=== PATIENT | female | born 1995 | race Two or more races ===

== ENCOUNTER 2020-04-08 08:39 | Outpatient (REF) | payer MEDICAID, SELFPAY ==
--- NOTE | 2020-04-08 | US_ITS ---
EXAMINATION: OBSTETRICAL ULTRASOUND, FIRST TRIMESTER HISTORY: 25-year-old at the 12.5 weeks of gestation NT screening COMPARISON: 02/22/2020 TECHNIQUE: Real time transabdominal imaging with color and M-mode Doppler. FINDINGS: A single, live IUP CRL of 70.2 mm c/w 13.2wks is noted. Heart Rate: 156 beats per minute. Normal yolk sac seen. NT was 1.7.mm. NB Present The embryo appears sonographically wnl for this GA. Both maternal ovaries are seen and appear normal. GESTATIONAL AGE: 1. Established GA: 12.5 wks 2. GA from [facility]: 13.2 wks ESTIMATED DATE OF DELIVERY: 1. Established MICHEL: 10/16/2020 2. MICHEL from [facility]: 10/12/2020 IMPRESSION: * A single live IUP * Size equals dates * NT of 1.37 mm MFM Consultation: I reviewed the ultrasound findings along with significance of NT measurement. The NT of less than 3mm is generally reassuring. However, the sensitivity for T21 detection is only 60%. I reviewed the availability of serum aneuploidy screening which includes cell-free DNA and placental protein based tests. I discussed the sensitivity, false-positive rate, and other limitations associated with each test. I also reviewed the availability of invasive diagnostic tests that are associated small but definite risk of miscarriage. We also reviewed the differences between screening tests and diagnostic tests. After our discussion, she opted for the First trimester screening that is based on cell-free DNA or non-invasive testing (NIPT). The result will be faxed to your office in approximately 7 days. A follow up at 18 weeks for survey has been scheduled. Thank you very much for this referral. Majority of this visit was spent reviewing her care and counselling her in face to face time: Time spent 20 min.
== END 2020-04-08 08:40 | disposition home or self-care (01) ==
LOC: HO.US 08:39
PROVIDERS: Visit Provider Advanced Practice Midwife
DX: Z34.91 Encounter for supervision of normal pregnancy, unspecified, first trimester (principal)
CPT/HCPCS: 76813

== ENCOUNTER 2020-04-11 11:01 | Outpatient (REF) | payer MEDICAID, SELFPAY ==
[2020-04-12 11:07] LABS: CT PCR NOT DETECTED (Not Detect.); NG PCR NOT DETECTED (Not Detect.)
== END 2020-04-11 11:02 | disposition home or self-care (01) ==
LOC: HO.LNP 11:01
PROVIDERS: Visit Provider Obstetrics & Gynecology
DX: Z34.81 Encounter for supervision of other normal pregnancy, first trimester (principal); Z3A.13 13 weeks gestation of pregnancy
CPT/HCPCS: 36415; 87491; 87591; 88142

== ENCOUNTER → 2020-05-09 15:48 | Outpatient (BNVA) | payer MEDICAID, SELFPAY | PROVIDERS: Visit Provider Advanced Practice Midwife | DX: Z76.89 Persons encountering health services in other specified circumstances (principal) ==

== ENCOUNTER 2020-05-20 12:08 | Outpatient (REF) | payer MEDICAID, SELFPAY ==
--- NOTE | 2020-05-20 12:10 | US_ITS ---
EXAMINATION: US OBSTETRICAL CLINICAL INFORMATION: 25-year-old at 18.5 weeks of gestation Suspected anomaly COMPARISON: 04/08/2020 TECHNIQUE: Real-time transabdominal ultrasound was performed using C1-5 megahertz transducer. FINDINGS: A single, active, fetus is seen in vertex presentation. The placenta is posterior without previa, and the amniotic fluid volume is wnl. MEASUREMENTS: 1. Biparietal Diameter: 4.4 cm; 19.2 wks 2. Occipital Frontal Diameter: 5.5 cm 3. Head Circumference: 16.4 cm; 19.1 wks 4. Abdominal Circumference: 14.0 cm; 19.3 wks 5. Femur Length: 2.8 cm; 18.5 wks 6. Humerus Length: 2.9 cm; 19.4 wks 7. Tibia Length: 2.5 cm; 18.6 wks 8. Ulna Length: 2.8 cm; 20.1 wks 9. Lateral ventricle: 0.5 cm 10. Cerebellum: 1.9 cm; 19.2 wks 11. Cisterna Magna: 0.34 cm 12. Nuchal Fold: 3.2 mm 13. Heart Rate: 143 beats per minute Rt ovary: Unable to visualize Lt ovary: Unable to visualize Cervical length 3.7 cm on T/A. GESTATIONAL AGE: 1. Established GA: 18.5 wks 2. GA from [facility]: 19.1 wks ESTIMATED DATE OF DELIVERY: 1. Established MICHEL: 10/16/2020 2. MICHEL from [facility]: 10/13/2020 ANATOMY: The visualized anatomy includes but not limited to: 1. Cranium: Normal 2. Intracranial anatomy: cavum septum pellucidi, lateral ventricles, choroid plexus, cerebellum, posterior fossa, third and fourth ventricles. 3. face: orbits, lip/palate, profile, nasal bone 4. Heart: four-chamber view of the heart, ventricular septum, foramen ovale, pulmonary vein, left and right outflow tracts, three-vessel view, 3 vessel trachea view, aortic and ductal arches, situs.. 5. Diaphragm: Normal 6. Abdominal wall: Normal 7. Cord Insertion: Normal 8. Spine: Cervical, thoracic, lumbar, sacral. 9. Stomach: Normal size and shape 10. Right Kidney: Normal 11. Left Kidney: Normal 12. 3 vessel cord: Normal 13. Upper extremity: Open hands, fifth digit. 14. Lower extremity: Tibia, fibula, bilateral feet. 15. Bladder: Normal 16. Genitalia: Female, patient aware US/US OB /maternal detail IMPRESSION: 1. Single, living, intrauterine with appropriate biometry. 2. Normal survey DISCUSSION: I reviewed today's ultrasound findings. We discussed the limitations of ultrasound in diagnosing aneuploidy and other congenital abnormalities. I reviewed the differences between screening test and diagnostic test. Amniocentesis was discussed and declined. She was informed that the baseline incidence of congenital abnormalities is approximately 3-5%. Not all these conditions are diagnosable in utero. RECOMMENDATIONS: 1. No additional ultrasound has been scheduled. Thank you for allowing me to participate in her care. Visiting time 25 minutes. Majority of this visit was spent reviewing and discussing her care.
== END 2020-05-20 12:09 | disposition home or self-care (01) ==
LOC: HO.US 12:08
PROVIDERS: PCP Family Medicine; Visit Provider Advanced Practice Midwife
DX: Z34.80 Encounter for supervision of other normal pregnancy, unspecified trimester (principal); Z36.3 Encounter for antenatal screening for malformations; Z3A.18 18 weeks gestation of pregnancy
CPT/HCPCS: 76811

== ENCOUNTER → 2020-06-06 14:47 | Outpatient (BNVA) | payer MEDICAID, SELFPAY | PROVIDERS: PCP Family Medicine; Visit Provider Advanced Practice Midwife | DX: Z76.89 Persons encountering health services in other specified circumstances (principal) ==

== ENCOUNTER 2020-06-24 15:16 | Outpatient (REF) | payer MEDICAID, SELFPAY ==
[2020-06-26 11:58] LABS: BV Int Neg Control Negative (Negative); BV Int Pos Control Positive (Positive)
== END 2020-06-24 15:17 | disposition home or self-care (01) ==
LOC: HO.LAB 15:16
PROVIDERS: PCP Family Medicine; Visit Provider Obstetrics & Gynecology
DX: O26.892 Other specified pregnancy related conditions, second trimester (principal); N89.8 Other specified noninflammatory disorders of vagina; O98.312 Other infections with a predominantly sexual mode of transmission complicating pregnancy, second trimester; Z3A.23 23 weeks gestation of pregnancy
CPT/HCPCS: 81003; 87480; 87491; 87510; 87591; 87660

== ENCOUNTER → 2020-07-04 15:14 | Outpatient (BNVA) | payer MEDICAID, SELFPAY | PROVIDERS: Visit Provider Obstetrics & Gynecology | DX: Z34.83 Encounter for supervision of other normal pregnancy, third trimester (principal) | CPT/HCPCS: 81003; 99212 ==

== ENCOUNTER 2020-07-25 14:11 | Outpatient (REF) | payer MEDICAID, SELFPAY ==
[2020-07-25 15:41] LABS: MANUAL DIFF FLAG NO
[2020-07-25 15:47] LABS: Basophils Percent Auto 0.3 % (0-2); Eosinophils Absolute Auto 0.3 X10*3/uL (0.0-0.4); Eosinophils Percent Auto 2.3 % (0-4); Hematocrit 29.2 % (37-47); Hemoglobin 9.2 g/dl (12.0-16.0); Imm Gran Abs Auto 0.15 X10*3/uL (0.00-0.03); Imm Gran Pct Auto 1.4 % (0.0-0.4); Lymphocytes Absolute Auto 1.9 X10*3/uL (1.2-4.9); Lymphocytes Percent Auto 17.2 % (20-40); Mean Corpuscular HGB Conc 31.5 g/dl (31.0-35.0); Mean Corpuscular Hemoglobin 24.1 pg (27.0-33.0); Mean Corpuscular Volume 76.4 fL (80-98); Mean Platelet Volume 10.1 fL (9.4-12.3); Monocytes Absolute Auto 0.9 X10*3/uL (0.1-1.2); Monocytes Percent Auto 8.5 % (2-11); Neutrophils Absolute Auto 7.8 X10*3/uL (2.0-8.3); Neutrophils Percent Auto 70.3 % (45-73); Platelet Count 413 X10*3/uL (160-400); Red Blood Count 3.82 X10*6/uL (4.20-5.50); Red Cell Distribution Width 14.1 % (11.0-16.0); White Blood Count 11.1 X10*3/uL (4.8-10.8)
[2020-07-25 16:26] LABS: Syphilis Screen Nonreactive (Nonreactive)
[2020-07-27 09:16] LABS: HIV AB/AG Nonreactive (Nonreactive); HIV Num 1 0.07 S/CO (0.00-0.99); Hepatitis B Surface Antigen Negative (Negative)
[2020-07-28 00:27] LABS: C. trachomatis RNA TMA NOT DETECTED (NOT DETECTED); N. gonorrhoeae RNA TMA NOT DETECTED (NOT DETECTED)
== END 2020-07-25 14:12 | disposition home or self-care (01) ==
LOC: HO.LAB 14:11
PROVIDERS: PCP Family Medicine; Visit Provider Obstetrics & Gynecology
DX: Z34.83 Encounter for supervision of other normal pregnancy, third trimester (principal); R30.0 Dysuria
CPT/HCPCS: 85025; 86780; 86850; 86900; 86901; 87086; 87147; 87340; 87389; 87491; 87591; 90471; 90715; 99212

== ENCOUNTER → 2020-07-29 14:42 | Outpatient (BNVA) | payer MEDICAID, SELFPAY | PROVIDERS: Visit Provider Advanced Practice Midwife | DX: R42 Dizziness and giddiness (principal) | CPT/HCPCS: 81003; 99212 ==

== ENCOUNTER → 2020-08-24 13:35 | Outpatient (BNVA) | payer MEDICAID, SELFPAY | PROVIDERS: Visit Provider Advanced Practice Midwife | DX: Z34.83 Encounter for supervision of other normal pregnancy, third trimester (principal) | CPT/HCPCS: 81003; 99212 ==

== ENCOUNTER → 2020-09-07 14:10 | Outpatient (BNVA) | payer MEDICAID, SELFPAY | PROVIDERS: Visit Provider Obstetrics & Gynecology | DX: Z34.83 Encounter for supervision of other normal pregnancy, third trimester (principal) | CPT/HCPCS: 99212 ==

== ENCOUNTER 2020-09-18 18:31 | Emergency (ER) | payer MEDICAID, SELFPAY ==
[2020-09-18 18:57] VITALS: BP 130/55; PULSE 103; RESP 18; TEMP 36.9; O2SAT 100; BMI 29.6
[2020-09-18 21:11] VITALS: BP 113/64; PULSE 92; RESP 15; O2SAT 98
[2020-09-18] MEDS: 0.9 % Sodium Chloride 1,000 ML 999 ML IV ×2 (21:27→22:53)
[2020-09-18 21:32] LABS: MANUAL DIFF FLAG NO
[2020-09-18 21:35] LABS: Basophils Percent Auto 0.2 % (0-2); Eosinophils Absolute Auto 0.2 X10*3/uL (0.0-0.4); Hematocrit 34.6 % (37-47); Hemoglobin 10.8 g/dl (12.0-16.0); Imm Gran Abs Auto 0.19 X10*3/uL (0.00-0.03); Imm Gran Pct Auto 1.7 % (0.0-0.4); Lymphocytes Absolute Auto 1.5 X10*3/uL (1.2-4.9); Lymphocytes Percent Auto 12.8 % (20-40); Mean Corpuscular HGB Conc 31.2 g/dl (31.0-35.0); Mean Corpuscular Hemoglobin 24.2 pg (27.0-33.0); Mean Corpuscular Volume 77.4 fL (80-98); Mean Platelet Volume 10.5 fL (9.4-12.3); Monocytes Absolute Auto 0.8 X10*3/uL (0.1-1.2); Monocytes Percent Auto 7.3 % (2-11); Neutrophils Absolute Auto 8.6 X10*3/uL (2.0-8.3); Platelet Count 332 X10*3/uL (160-400); Red Blood Count 4.47 X10*6/uL (4.20-5.50); Red Cell Distribution Width 19.2 % (11.0-16.0); White Blood Count 11.3 X10*3/uL (4.8-10.8)
--- NOTE | 2020-09-18 21:39 | ED.PREGNANCY ---
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 She now presents with 2 days of constant nausea and vomiting without fevers, chills, diarrhea, urinary pain/burning/frequency, vaginal discharge/bleeding, cramping, and states she is feeling the baby moving. Patient states that she does have a sick contact by her young son and denies any current complications of her . Patient has declined both influenza vaccine as well as Tdap. She is currently on Zoloft and states she has been having acid reflux throughout her . Related Data Previous Rx's Medication Instructions Recorded vits 75-iron 28 mg-folic 1 pkg PO DAILY #90 ea 04/11/20 acid 800 mcg-omega-3 oral combo pack loratadine 10 mg tablet 10 mg PO DAILY PRN #30 tab 06/06/20 metronidazole 500 mg tablet 500 mg PO BID 7 Days #14 tab 06/28/20 miconazole nitrate 2 % vaginal 1 appful VAGINAL BEDTIME 7 Days 06/28/20 cream #45 g sertraline 50 mg tablet 50 mg PO DAILY #20 tab 07/25/20 docusate sodium 100 mg capsule 100 mg PO BID PRN 30 Days #60 cap 07/26/20 ferrous sulfate 325 mg (65 mg 325 mg PO BID 30 Days #60 tab 07/26/20 iron) tablet,delayed release famotidine 20 mg tablet 20 mg PO BID #60 tab 09/07/20 vits no.130-ferrous fum 1 tab PO DAILY #30 tab 09/07/20 27 mg iron-folic acid 800 mcg tablet Allergies Allergy/AdvReac Type Severity Reaction Status Date / Time No Known Allergies Allergy Verified 09/07/20 14:23 Review of Systems Review of Systems: Pertinent positives and negatives as stated in HPI 10 point review of systems is otherwise negative. PMFSH Past Medical History Source: nursing notes reviewed Medical History Depression Patient denies medical problems Positive depression screening Surgical History No pertinent past surgical history Family History Family History Father History of asthma Hx of diabetes mellitus Hx of cancer of lung History of mental problems Family hx of hypertension Hx of cardiovascular disorder Mother Hx of thyroid disease Brother History of ADHD Paternal Grandmother Family hx of hypertension Social History Social History Alcohol intake: never Smoking Status: Never smoker Use of substances other than those prescribed or required for medical reasons: No Advance Directives: No Advance Directives Information Provided: No Sexual orientation: Straight/Heterosexual Gender identity: female Physical Exam Vital Signs: Vital Signs: Last Vital Signs Temp 98.5 F 09/18/20 18:57 Pulse 98 09/19/20 00:00 Resp 15 09/19/20 00:00 BP 118/71 09/19/20 00:00 Pulse Ox 98 09/19/20 00:00 Body Mass Index 29.6 VITAL SIGNS: Reviewed. GENERAL: Well developed, well nourished, in no acute distress. HEAD: Normocephalic/atraumatic, EYES: PERRLA, EOMI OROPHARYNX: no oral lesions noted, posterior pharynx clear, tacky mucosa NECK: Supple, no adenopathy LUNGS: Normal breath sounds. No adventitious sounds or accessory muscle use. SpO2<100> CARDIOVASCULAR: Regular rate and rhythm without noted murmurs ABDOMEN: Soft, non-tender, non-distended with bowel sounds. EXTREMITIES: No edema. SKIN: Inspection of the skin reveals no rashes NEUROLOGIC: Alert and oriented x 4. Course Course Course Narrative: This is a 25-year-old female with history and clinical presentation with development of nausea and vomiting without diarrhea of unclear etiology but states she has been having acid reflux problems throughout her . Will rule out infectious etiologies but no clinical evidence to suggest HELLP syndrome, diabetes, or UTI. Review of all investigations negative for any acute findings other than presence of blood within the urine and suspect that the leukocyte esterase that is observed a secondary to the presence of blood as there have been no fevers. Suspect that this may be you are ureterolithiasis the case was discussed with the on-call engineering inspection assistant who recommends transfer to [facility] for NST. COVID negative. Reevaluation(s) Reevaluation #1: I discussed the case with Dr Corbin who recommends transfer to [facility] for NST given that patient is 35 weeks. Time: 23:30 Reevaluation #2: I discussed case with Dr. Rivera, from [facility], who accepts transfer for NST evaluation. Time: 23:45 MDM - OB/Uterine Contractions Lab Data Result diagrams: 09/18/20 21:26 09/18/20 21:26 Labs: Lab Results 09/18/20 09/18/20 09/18/20 Range/Units 21:26 21:26 22:49 WBC 11.3 H (4.8-10.8) X10*3/uL RBC 4.47 (4.20-5.50) X10*6/uL Hgb 10.8 L (12.0-16.0) g/dl Hct 34.6 L (37-47) % MCV 77.4 L (80-98) fL MCH 24.2 L (27.0-33.0) pg MCHC 31.2 (31.0-35.0) g/dl RDW 19.2 H (11.0-16.0) % Plt Count 332 (160-400) X10*3/uL MPV 10.5 (9.4-12.3) fL Immature Gran % (Auto) 1.7 H (0.0-0.4) % Neut % (Auto) 76.0 H (45-73) % Lymph % (Auto) 12.8 L (20-40) % Bond % (Auto) 7.3 (2-11) % Eos % (Auto) 2.0 (0-4) % Baso % (Auto) 0.2 (0-2) % Lymph # (Auto) 1.5 (1.2-4.9) X10*3/uL Bond # (Auto) 0.8 (0.1-1.2) X10*3/uL Eos # (Auto) 0.2 (0.0-0.4) X10*3/uL Baso # (Auto) 0.0 (0.0-0.2) X10*3/uL Abs Immat Gran (auto) 0.19 H (0.00-0.03) X10*3/uL Absolute Neuts (auto) 8.6 H (2.0-8.3) X10*3/uL Absolute Nucleated RBC 0.000 (0.0-0.012) X10*3/uL Nucleated RBC % (auto) 0.0 (0.0-0.2) /100WBC Sodium 138 (135-145) mmol/L Potassium 3.6 (3.3-5.1) mmol/L Chloride 106 (96-108) mmol/L Carbon Dioxide 23 (22-29) mmol/L Anion Gap 13 (12-20) BUN 6 L (9-16) mg/dL Creatinine 0.61 (0.5-1.4) mg/dL Estim Creat Clear Calc 133.5 Estimated GFR > 60 Random Glucose 113 (60-115) mg/dL Calcium 8.7 (8.4-10.2) mg/dL Total Bilirubin 0.5 (0.0-1.0) mg/dL AST 14 (5-31) U/L ALT 8 (0-31) U/L Alkaline Phosphatase 149 H (39-117) U/L Total Protein 6.6 (6.5-8.0) g/dL Albumin 3.6 (3.5-5.0) g/dL Urine Color YELLOW Urine Appearance HAZY Urine pH 6.5 (5.0-8.0) Ur Specific [place] 1.020 (1.005-1.025) Urine Protein TRACE (NEG-TRACE) MG/DL Urine Glucose (UA) NEG (NEG) MG/DL Urine Ketones NEG (NEG) MG/DL Urine Blood 3+ H (NEG) Urine Nitrite NEG (NEG) Ur Leukocyte Esterase TRACE H (NEG) Urine RBC 15-29 H (0) /HPF Urine WBC 0-2 (0-4) /HPF Ur Squamous Epith Cells 1+ /LPF Amorphous Sediment 1+ /LPF Urine Bacteria 1+ /LPF COVID-19 (PILY) (Negative) COVID-19 Clin Com 09/18/20 Range/Units 23:46 WBC (4.8-10.8) X10*3/uL RBC (4.20-5.50) X10*6/uL Hgb (12.0-16.0) g/dl Hct (37-47) % MCV (80-98) fL MCH (27.0-33.0) pg MCHC (31.0-35.0) g/dl RDW (11.0-16.0) % Plt Count (160-400) X10*3/uL MPV (9.4-12.3) fL Immature Gran % (Auto) (0.0-0.4) % Neut % (Auto) (45-73) % Lymph % (Auto) (20-40) % Bond % (Auto) (2-11) % Eos % (Auto) (0-4) % Baso % (Auto) (0-2) % Lymph # (Auto) (1.2-4.9) X10*3/uL Bond # (Auto) (0.1-1.2) X10*3/uL Eos # (Auto) (0.0-0.4) X10*3/uL Baso # (Auto) (0.0-0.2) X10*3/uL Abs Immat Gran (auto) (0.00-0.03) X10*3/uL Absolute Neuts (auto) (2.0-8.3) X10*3/uL Absolute Nucleated RBC (0.0-0.012) X10*3/uL Nucleated RBC % (auto) (0.0-0.2) /100WBC Sodium (135-145) mmol/L Potassium (3.3-5.1) mmol/L Chloride (96-108) mmol/L Carbon Dioxide (22-29) mmol/L Anion Gap (12-20) BUN (9-16) mg/dL Creatinine (0.5-1.4) mg/dL Estim Creat Clear Calc Estimated GFR Random Glucose (60-115) mg/dL Calcium (8.4-10.2) mg/dL Total Bilirubin (0.0-1.0) mg/dL AST (5-31) U/L ALT (0-31) U/L Alkaline Phosphatase (39-117) U/L Total Protein (6.5-8.0) g/dL Albumin (3.5-5.0) g/dL Urine Color Urine Appearance Urine pH (5.0-8.0) Ur Specific [place] (1.005-1.025) Urine Protein (NEG-TRACE) MG/DL Urine Glucose (UA) (NEG) MG/DL Urine Ketones (NEG) MG/DL Urine Blood (NEG) Urine Nitrite (NEG) Ur Leukocyte Esterase (NEG) Urine RBC (0) /HPF Urine WBC (0-4) /HPF Ur Squamous Epith Cells /LPF Amorphous Sediment /LPF Urine Bacteria /LPF COVID-19 (PILY) Negative (Negative) COVID-19 Clin Com See Note Discharge Plan Discharge Clinical Impression: 35 weeks gestation of Nausea & vomiting Qualifiers: Vomiting type: unspecified Vomiting Intractability: non-intractable Qualified Code(s): R11.2 - Nausea with vomiting, unspecified Hematuria Qualifiers: Hematuria type: unspecified type Qualified Code(s): R31.9 - Hematuria, unspecified Patient Disposition: [facility] Transfer Details: Needs NST Prescriptions: No Action metronidazole [Flagyl] 500 mg tablet 500 mg PO BID 7 Days Qty: 14 RF: 0 miconazole nitrate [Monistat 7] 2 % cream 1 appful vaginal BEDTIME 7 Days Qty: 45 RF: 0 ferrous sulfate 325 mg (65 mg iron) tablet,delayed release (DR/EC) 325 mg PO BID 30 Days Qty: 60 RF: 3 docusate sodium [Colace] 100 mg capsule 100 mg PO BID PRN (Reason: constipation) 30 Days Qty: 60 RF: 3 One A Day Women's DHA 28 mg iron- 800 mcg combo pack 1 pkg PO DAILY Qty: 90 RF: 3 loratadine [Allergy Relief (loratadine)] 10 mg tablet 10 mg PO DAILY PRN (Reason: allergy symptoms) Qty: 30 RF: 1 famotidine [Pepcid] 20 mg tablet 20 mg PO BID Qty: 60 RF: 3 Vitamin 27 mg iron- 800 mcg tablet 1 tab PO DAILY Qty: 30 RF: 5 sertraline 50 mg tablet 50 mg PO DAILY Qty: 20 RF: 0
[2020-09-18 21:59] LABS: Alanine Aminotransferase 8 U/L (0-31); Albumin Level 3.6 g/dL (3.5-5.0); Alkaline Phosphatase 149 U/L (39-117); Anion Gap 13 (12-20); Aspartate Amino Transferase 14 U/L (5-31); Bilirubin Total 0.5 mg/dL (0.0-1.0); Blood Urea Nitrogen 6 mg/dL (9-16); Calcium 8.7 mg/dL (8.4-10.2); Carbon Dioxide 23 mmol/L (22-29); Chloride 106 mmol/L (96-108); Creatinine Clr Calc Pharmacy 133.5; Estimated Glomerular Filt Rate > 60; Glucose Random 113 mg/dL (60-115); Potassium 3.6 mmol/L (3.3-5.1); Sodium 138 mmol/L (135-145); Total Protein 6.6 g/dL (6.5-8.0)
[2020-09-18 23:03] LABS: Glucose Urine UA NEG (NEG); Leukocyte Esterase Urine TRACE (NEG); Nitrite Urine NEG (NEG); PH 6.5 (5.0-8.0); UACC Culture Trigger YES; Urine Blood 3+ (NEG); Urine Ketones NEG (NEG); Urine Protein TRACE MG/DL (NEG-TRACE)
[2020-09-18 23:05] LABS: Appearance Urine HAZY; Color Urine YELLOW
[2020-09-18 23:12] LABS: Amorphous Sediment Urine 1+ /LPF; Bacteria Urine 1+ /LPF; Squamous Epithelial Cell Urine 1+ /LPF; WBC Urine 0-2 /HPF (0-4)
--- NOTE | 2020-09-18 23:34 | PC.NURSE ---
@[id number] DR GARZA REQUESTS CALL OUT TO [facility] [place] LINE FOR THIS PT PT INFO AND REASON FOR TRANSFER TAKEN ALONG WITH CALL BACK NUMBER AND TOLD THEY WILL CALL US BACK WITH A DR ON THE LINE SOON TO SPEAK WITH DR GARZA..
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
--- NOTE | 2020-09-18 23:42 | PC.NURSE ---
@23:41 IRMA FROM [facility] TX LINE CALLS FOR DR GREG GARZA TAKES OVER CALL RIGHT AWAY
[2020-09-19] VITALS: BP 118/71; PULSE 98; RESP 15; O2SAT 98
[2020-09-19 00:35] LABS: COVID-19 Test Negative (Negative)
--- NOTE | 2020-09-19 01:00 | PC.NURSE ---
@0059 [facility] CALLED FOR TRANPORT TO [facility] ROOM 19 BLS TRANSPORT. ANTONY ANSWERS, TAKES PT INFO AND DESTINATION INFO, THEN GIVES 1/2 HOUR ARRIVAL TIME
--- NOTE | 2020-09-19 01:24 | PC.NURSE ---
@0118 [facility] ARRIVES FOR TRANSFER OF THIS PT GETS EPORT FROM JASMIN DUMONT
== END 2020-09-19 01:39 | disposition short-term general hospital (02) ==
PROVIDERS: Emergency Provider Student in an Organized Health Care Education/Training Program
DX: O26.93 Pregnancy related conditions, unspecified, third trimester (principal); Z3A.35 35 weeks gestation of pregnancy; Z20.822 Contact with and (suspected) exposure to COVID-19; Z79.899 Other long term (current) drug therapy
CPT/HCPCS: 36415; 80053; 81001; 81003; 85025; 87086; 87635; 96360; 96361; 99283; 99285

== ENCOUNTER → 2020-09-21 12:30 | Outpatient (BNVA) | payer MEDICAID, SELFPAY | PROVIDERS: PCP Family Medicine; Visit Provider Advanced Practice Midwife | DX: O36.5990 Maternal care for other known or suspected poor fetal growth, unspecified trimester, not applicable or unspecified (principal); Z3A.36 36 weeks gestation of pregnancy | CPT/HCPCS: 81003; 99212 ==

== ENCOUNTER 2020-09-23 14:35 | Outpatient (REF) | payer MEDICAID, SELFPAY ==
--- NOTE | ~2020-09-23 | US_ITS ---
EXAMINATION: OBSTETRICAL ULTRASOUND, Follow up HISTORY: 35-year-old at 36.5 weeks of gestation Size date discrepancy COMPARISON: 05/20/2020 TECHNIQUE: Real time transabdominal imaging with color and M-mode Doppler. PRESENTATION: Vertex PLACENTA LOCATION: Posterior, without previa AMNIOTIC FLUID: ANDRAE 10.1 cm MEASUREMENTS: 1. Biparietal Diameter: 9.3 cm; 37.5 wks 2. Head Circumference: 32.2 cm; 36.3 wks 3. Abdominal Circumference: 33.42 cm; 37.3 wks 4. Femur Length: 7.14 cm; 36.5 wks 5. Heart Rate: 133 beats per minute WEIGHT: EFW: 3180 grams (7 lbs 0 oz) -- 71 %. BIOPHYSICAL PROFILE: Motion: 2 Tone: 2 Breathin Amniotic Fluid: 2 Total score: 8/8 GESTATIONAL AGE: 1. Established GA: 36.5 wks 2. GA from A: 37.1 wks ESTIMATED DATE OF DELIVERY: 1. Established MICHEL: 10/16/2020 2. MICHEL from [facility]: 10/13/2020 US/US OB follow up IMPRESSION: 1. A single active fetus is in vertex presentation 2. Size equals dates 3. Reassuring biophysical profile with normal amniotic fluid We reviewed the limitations of ultrasound and estimating weights. Thank you very much for this referral. This note was generated with a voice recognition program. Please excuse any errors which may have been overlooked during my review of this note. Sometimes these errors may affect the content or meaning of a given sentence.
== END 2020-09-23 14:36 | disposition home or self-care (01) ==
LOC: HO.US 14:35
PROVIDERS: Visit Provider Advanced Practice Midwife
DX: O26.843 Uterine size-date discrepancy, third trimester (principal); O36.5930 Maternal care for other known or suspected poor fetal growth, third trimester, not applicable or unspecified; Z3A.36 36 weeks gestation of pregnancy
CPT/HCPCS: 76816

== ENCOUNTER → 2020-10-04 14:29 | Outpatient (BNVA) | payer MEDICAID, SELFPAY | PROVIDERS: PCP Family Medicine; Visit Provider Obstetrics & Gynecology | DX: Z34.80 Encounter for supervision of other normal pregnancy, unspecified trimester (principal); Z3A.38 38 weeks gestation of pregnancy | CPT/HCPCS: 81003; 99212 ==

== ENCOUNTER 2022-09-28 10:52 | Emergency (ER) | payer MEDICAID, SELFPAY ==
[2022-09-28 10:55] VITALS: BP 141/85; PULSE 110; RESP 22; TEMP 36.6; O2SAT 96; BMI 24.7
[2022-09-28] MEDS: Albuterol Sulfate (0.083%) 2.5 MG/3 ML VIAL.NEB 10 MG INHALE ×2 (11:52→13:00)
[2022-09-28 11:53] VITALS: PULSE 110; RESP 20; O2SAT 96
[2022-09-28 13:01] LABS: COVID-19 Test Negative (Negative); IDNOW Serial# 55D5AD1C
--- NOTE | 2022-09-28 13:14 | ED.SOB ---
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 This has not been associated with any prior fever, chills, sore throat, new cough, ear pain, GI or symptoms. Related Data Previous Rx's Medication Instructions Recorded vits 75-iron 28 mg-folic 1 pkg PO DAILY #90 ea 04/11/20 acid 800 mcg-omega-3 oral combo pack (One A Day Women's DHA) loratadine 10 mg tablet (Allergy 10 mg PO DAILY PRN allergy 06/06/20 Relief (loratadine)) symptoms #30 tabs metronidazole 500 mg tablet 500 mg PO BID 7 days #14 tabs 06/28/20 (Flagyl) miconazole nitrate 2 % vaginal 1 appful vaginal BEDTIME 7 days 06/28/20 cream (Monistat 7) #45 grams sertraline 50 mg tablet 50 mg PO DAILY #20 tabs 07/25/20 docusate sodium 100 mg capsule 100 mg PO BID PRN constipation 30 07/26/20 (Colace) days #60 caps ferrous sulfate 325 mg (65 mg 325 mg PO BID 30 days #60 tabs 07/26/20 iron) tablet,delayed release famotidine 20 mg tablet (Pepcid) 20 mg PO BID #60 tabs 09/07/20 vits no.130-ferrous fum 1 tab PO DAILY #30 tabs 09/07/20 27 mg iron-folic acid 800 mcg tablet ( Vitamin) prednisone 50 mg tablet 50 mg PO DAILY 4 days #4 tabs 09/28/22 Allergies Allergy/AdvReac Type Severity Reaction Status Date / Time No Known Allergies Allergy Verified 10/04/20 14:47 Review of Systems Review of Systems: Pertinent positives and negatives as stated in HPI PMF Past Medical History Source: nursing notes reviewed Medical History Depression Patient denies medical problems Positive depression screening Surgical History No pertinent past surgical history Family History Family History Father History of asthma Hx of diabetes mellitus Hx of cancer of lung History of mental problems Family hx of hypertension Hx of cardiovascular disorder Mother Hx of thyroid disease Brother History of ADHD Paternal Grandmother Family hx of hypertension Social History Social History Alcohol intake: never Advance Directives: No Advance Directives Information Provided: Yes Sexual orientation: Straight/Heterosexual Gender identity: Female Physical Exam Vital Signs: Vital Signs: Last Vital Signs Temp 97.8 F 09/28/22 10:55 Pulse 118 H 09/28/22 13:37 Resp 20 09/28/22 13:37 BP 139/76 09/28/22 13:37 Pulse Ox 99 09/28/22 13:37 O2 Del Method Room Air 09/28/22 13:37 BMI result Body Mass Index 24.7 VITAL SIGNS: Reviewed. GENERAL: Well developed, well nourished, in no acute distress. HEAD: Normocephalic/atraumatic EYES: PERRLA, EOMI EARS: Ext canals without abnormality, TMs non-bulging and non-erythematous NOSE: Nares patent bilateral OROPHARYNX: no oral lesions noted, posterior pharynx clear and non-erythematous without noted tonsillar enlargement/erythema/exudates NECK: Supple, no adenopathy LUNGS: Decreased breath sounds bilaterally with expiratory wheeze, tachypnea is present SpO2<96> CARDIOVASCULAR: Regular rate and rhythm without noted murmurs ABDOMEN: Soft, non-tender, non-distended with bowel sounds. MUSCULOSKELETAL: No tenderness, deformities, or effusions noted on gross inspection. EXTREMITIES: No cyanosis, clubbing or edema. SKIN: Inspection of the skin reveals no rashes NEUROLOGIC: Alert and oriented x 4. Strength and sensation to light touch were grossly intact x 4. Medications Administered Discontinued Medications Generic Name Dose Route Start Last Admin Trade Name Freq PRN Reason Stop Dose Admin Albuterol Sulfate 10 mg 09/28/22 11:30 09/28/22 11:52 Albuterol Sulfate (0.083%) 2.5 Mg/3 Ml Vial.Neb INHALE 09/28/22 11:31 10 mg ONCE ONE Administration Albuterol Sulfate 10 mg 09/28/22 12:36 09/28/22 13:00 Albuterol Sulfate (0.083%) 2.5 Mg/3 Ml Vial.Neb INHALE 09/28/22 12:37 10 mg ONCE ONE Administration Prednisone 50 mg 09/28/22 12:36 09/28/22 13:38 Prednisone 10 Mg Tablet PO 09/28/22 12:37 50 mg ONCE ONE Administration Medical Decision Making Medical Decision Making MDM Narrative: 27-year-old female with history and clinical presentation consistent with acute asthma exacerbation, patient will receive nebulized treatments, steroids, and COVID-19 testing. Review of all investigations are negative for acute findings my interpretation is this is a straightforward mild acute asthma exacerbation and on re-evaluation patient is significantly improved and will go home on a short course of steroids. Differential Diagnosis Please see the discussion above Lab Data Please see the discussion above Labs: Lab Results 09/28/22 Range/Units 12:17 COVID-19 (PILY) Negative (Negative) COVID-19 Clin Com See Note External Record Review External record reviewed: Outpatient record and Prior outpatient labs Discharge Plan Discharge Clinical Impression: Asthma exacerbation Patient Disposition: Home, Self-Care Instructions: Asthma (ED) Additional Instructions: Reanude todos los medicamentos caseros. Complete el curso corto de esteroides. Seguimiento con stallings proveedor de atenci?n primaria el por la ma?koki Regrese a la eladia de emergencias si los s?ntomas empeoran. Resume all home medications. Please complete the short course of steroids. Follow-up with your primary care provider on Saturday morning Return to the ER for any worsening symptoms. Prescriptions: New prednisone 50 mg tablet 50 mg PO DAILY 4 Days Qty: 4 0RF No Action metronidazole [Flagyl] 500 mg tablet 500 mg PO BID 7 Days Qty: 14 0RF miconazole nitrate [Monistat 7] 2 % cream 1 appful vaginal BEDTIME 7 Days Qty: 45 0RF ferrous sulfate 325 mg (65 mg iron) tablet,delayed release (DR/EC) 325 mg PO BID 30 Days Qty: 60 3RF docusate sodium [Colace] 100 mg capsule 100 mg PO BID PRN (Reason: constipation) 30 Days Qty: 60 3RF One A Day Women's DHA 28 mg iron- 800 mcg combo pack 1 pkg PO DAILY Qty: 90 3RF loratadine [Allergy Relief (loratadine)] 10 mg tablet 10 mg PO DAILY PRN (Reason: allergy symptoms) Qty: 30 1RF famotidine [Pepcid] 20 mg tablet 20 mg PO BID Qty: 60 3RF Vitamin 27 mg iron- 800 mcg tablet 1 tab PO DAILY Qty: 30 5RF sertraline 50 mg tablet 50 mg PO DAILY Qty: 20 0RF Referrals: Evon Hayes DO [Primary Care Provider] - Print Language: Nepali
[2022-09-28 13:37] VITALS: BP 139/76; PULSE 118; RESP 20; O2SAT 99
[2022-09-28] MEDS: predniSONE 10 MG TABLET 50 MG PO (13:38)
== END 2022-09-28 14:49 | disposition home or self-care (01) ==
PROVIDERS: Emergency Provider Student in an Organized Health Care Education/Training Program; PCP Family Medicine
DX: J45.901 Unspecified asthma with (acute) exacerbation (principal); R06.00 Dyspnea, unspecified; R06.02 Shortness of breath; Z20.822 Contact with and (suspected) exposure to COVID-19; Z20.828 Contact with and (suspected) exposure to other viral communicable diseases; Z79.899 Other long term (current) drug therapy
CPT/HCPCS: 87635; 94640; 99284

== ENCOUNTER 2023-05-08 18:24 | Emergency (ER) | payer MEDICAID, SELFPAY ==
--- NOTE | ~2023-05-08 | US_ITS ---
EXAMINATION: US PELVIS CLINICAL INFORMATION: Pain and bleeding COMPARISON: OB ultrasound 09/24/2019 TECHNIQUE: Ultrasound of the pelvis is performed using both transabdominal and transvaginal transducers along with Doppler. Transvaginal imaging is performed due to inadequate visualization transabdominally. FINDINGS: Uterus: The uterus is anteverted and measures 8.5 x 3.9 x 5.1 cm. The double wall endometrial thickness is 5 mm. The uterus is smooth in contour and has normal myometrial echogenicity. No visible fibroid. Nabothian cysts are noted in the cervix. Adnexa: Both ovaries are visualized. There is normal color flow to the adnexa. There is no ovarian torsion. There is no pelvic ascites or fluid collection. Right ovary measures 2.4 x 2.7 x 3.2 cm for a volume of 11 mL and appears normal. Left ovary measures 2.1 x 2.3 x 2.1 cm for a volume of 5.3 mL and appears normal US/US pelvic and transvaginal IMPRESSION: Negative study.
[2023-05-08 18:36] VITALS: BP 129/64; PULSE 80; RESP 18; TEMP 36.3; O2SAT 98; BMI 29.8
--- NOTE | 2023-05-08 18:57 | MHC.EDTECH ---
Patient blood drawn and urine sample collected and sent to lab .
[2023-05-08 18:58] LABS: MANUAL DIFF FLAG NO
[2023-05-08 18:59] LABS: Basophils Percent Auto 0.4 % (0-2); Eosinophils Absolute Auto 0.4 X10*3/uL (0.0-0.4); Eosinophils Percent Auto 3.3 % (0-4); Hematocrit 32.5 % (37.0-47.0); Imm Gran Abs Auto 0.03 X10*3/uL (0.00-0.03); Imm Gran Pct Auto 0.3 % (0.0-0.4); Lymphocytes Absolute Auto 2.5 X10*3/uL (1.2-4.9); Lymphocytes Percent Auto 23.2 % (20-40); Mean Corpuscular HGB Conc 30.8 g/dl (31.0-35.0); Mean Corpuscular Volume 68.3 fL (80.0-98.0); Mean Platelet Volume 9.9 fL (9.4-12.3); Monocytes Absolute Auto 0.7 X10*3/uL (0.1-1.2); Monocytes Percent Auto 6.6 % (2-11); Neutrophils Absolute Auto 7.1 x10*3/uL (2.0-8.3); Neutrophils Percent Auto 66.2 % (45-73); Platelet Count 565 X10*3/uL (160-400); Red Blood Count 4.76 X10*6/uL (4.20-5.50); White Blood Count 10.7 X10*3/uL (4.8-10.8)
[2023-05-08 19:03] LABS: UPreg QC Valid YES; Urine Pregnancy NEGATIVE (NEGATIVE)
[2023-05-08 19:05] LABS: Appearance Urine Turbid; Color Urine Other
[2023-05-08 19:06] LABS: Bacteria Urine Trace (None Seen); Glucose Urine UA Negative (Negative); Hyaline Casts Urine 0-2 /LPF (0-2); Leukocyte Esterase Urine Trace (Negative); Nitrite Urine Positive (Negative); RBC Urine >20 /HPF (0-2); Specific Gravity - Urine 1.025 (1.005-1.025); UMIC TRIGGER UACC YES; Urine Blood Large (3+) (Negative); Urine Ketones Negative (Negative); Urine Protein 100 (2+) mg/dL (Neg-Trace); WBC Urine 21-50 /HPF (0-5)
[2023-05-08 19:07] LABS: UACC Culture Trigger YES
[2023-05-08 19:14] LABS: Alanine Aminotransferase 10 U/L (0-31); Albumin Level 3.9 g/dL (3.5-5.0); Alkaline Phosphatase 68 U/L (39-117); Anion Gap 14 (12-20); Aspartate Amino Transferase 15 U/L (5-31); Bilirubin Total 0.2 mg/dL (0.0-1.0); Blood Urea Nitrogen 12 mg/dL (9-16); Carbon Dioxide 22 mmol/L (22-29); Chloride 108 mmol/L (96-108); Creatinine Clr Calc Pharmacy 114.7; Estimated Glomerular Filt Rate > 60; Glucose Random 105 mg/dL (60-115); Potassium 3.7 mmol/L (3.3-5.1); Sodium 140 mmol/L (135-145); Total Protein 8.4 g/dL (6.5-8.0)
--- NOTE | 2023-05-08 20:33 | ED_ITS ---
HPI - Abdominal Pain General Chief Complaint: Abdominal Pain Stated Complaint: cramps in lower area, bleeding a lot Time Seen by Provider: 05/08/23 22:05 Source: patient, RN notes reviewed and old records reviewed Mode of arrival: ambulatory Limitations: no limitations History of Present Illness HPI narrative: 28-year-old female with past medical history significant for depression presents for evaluation of abdominal pain and vaginal bleeding Patient reports that her menstrual cycle started today which is early for her She reports lower abdominal cramping Her pain is 6/10 Denies any fevers, chills. Denies any new sexual partners or concern for sexually transmitted infections Denies any burning with urination or frequency Related Data Previous Rx's Medication Instructions Recorded vits 75-iron 28 mg-folic 1 pkg PO DAILY #90 ea 04/11/20 acid 800 mcg-omega-3 oral combo pack (One A Day Women's DHA) loratadine 10 mg tablet (Allergy 10 mg PO DAILY PRN allergy 06/06/20 Relief (loratadine)) symptoms #30 tabs metronidazole 500 mg tablet 500 mg PO BID 7 days #14 tabs 06/28/20 (Flagyl) miconazole nitrate 2 % vaginal 1 appful vaginal BEDTIME 7 days 06/28/20 cream (Monistat 7) #45 grams sertraline 50 mg tablet 50 mg PO DAILY #20 tabs 07/25/20 docusate sodium 100 mg capsule 100 mg PO BID PRN constipation 30 07/26/20 (Colace) days #60 caps ferrous sulfate 325 mg (65 mg 325 mg PO BID 30 days #60 tabs 07/26/20 iron) tablet,delayed release famotidine 20 mg tablet (Pepcid) 20 mg PO BID #60 tabs 09/07/20 vits no.130-ferrous fum 1 tab PO DAILY #30 tabs 09/07/20 27 mg iron-folic acid 800 mcg tablet ( Vitamin) prednisone 50 mg tablet 50 mg PO DAILY 4 days #4 tabs 09/28/22 cefuroxime axetil 250 mg tablet 250 mg PO Q12H #10 tabs 05/08/23 phenazopyridine 200 mg tablet 200 mg PO TID 6 doses #6 tabs 05/08/23 (Pyridium) Allergies Allergy/AdvReac Type Severity Reaction Status Date / Time No Known Allergies Allergy Verified 10/04/20 14:47 Review of Systems Constitutional: Denies body ache(s), Denies chills and Denies fever(s) Eyes: Denies blurry vision Denies sore throat Cardiovascular: Denies chest pain Gastrointestinal: Reports abdominal pain, Denies nausea and Denies vomiting Genitourinary: Reports pelvic pain and Reports vaginal discharge (bloody only) Musculoskeletal: Denies back pain Skin/Breast: Denies rash PMFSH Past Medical History Medical History Depression Patient denies medical problems Positive depression screening Surgical History No pertinent past surgical history Family History Family History Father History of asthma Hx of diabetes mellitus Hx of cancer of lung History of mental problems Family hx of hypertension Hx of cardiovascular disorder Mother Hx of thyroid disease Brother History of ADHD Paternal Grandmother Family hx of hypertension Social History Social History Unable to assess alcohol history related to: Unknown Alcohol intake: never Smoked in Last 30 Days: No Use of substances other than those prescribed or required for medical reasons: Unable to respond Advance Directives: No Sexual orientation: Straight/Heterosexual Gender identity: Female Physical Exam ED Vital Signs: Vital Signs - 24 hr 05/08/23 18:36 05/08/23 20:56 05/08/23 22:05 Temperature 97.3 F 98.4 F 98.2 F Pulse Rate 80 79 71 Respiratory Rate 18 18 18 Blood Pressure 129/64 126/71 120/77 Pulse Oximetry 98 99 99 Oxygen Delivery Method Room Air Room Air Room Air BMI result Body Mass Index 29.8 Const General: healthy appearing, comfortable, no acute distress, alert and awake Nutritional Appearance: well nourished Orientation/consciousness: patient oriented x3 HENMT Head: Yes normocephalic and Yes atraumatic Eyes Eyelids: Yes eyelids normal Conjunctivae: conjunctivae normal Sclerae: sclerae normal Corneas: corneas normal Pupils: Equal, round and reactive pupils present EOM: EOMs intact bilaterally Neck Neck: Yes full ROM Resp Effort & Inspection: normal respiratory effort, able to speak in complete sentences and not labored Cardio Rate: regular rate Rhythm: regular rhythm GI Inspection: No distended Palpation (GI): Soft to palpation, not firm, Tenderness to palpation present (GI) suprapubicly, no guarding and not rigid General: Yes deferred Neuro General: patient oriented x3 Cranial nerves: Yes Equal, round and reactive pupils present and Yes Bilaterally intact EOM present Cognition (Neuro): normal cognition Extrem Other: Moving all extremities well without any obvious deformities Medical Decision Making Medical Decision Making [facility] Narrative: 28-year-old healthy female presents for evaluation of lower abdominal pain and cramping. She is not . She denies any concern for STIs, she is afebrile, no vaginal discharge aside of blood, less likely b.i.d.. Will treat her pain with Toradol and get an ultrasound of the pelvis. Ovarian torsion is on the differential but favored to be less likely given that her pain is more central. She may be uterine fibroid or endometrial mass. Otherwise is good has been early presentation of her menstrual cycle. Differential Diagnosis Differential Diagnoses: The differential diagnosis associated with the presentation includes Abdominal pain Pelvic pain UTI Ovarian cyst exclude ovarian torsion PID less likely Lab Data [facility] Lab Attestation statement: I reviewed the patient's lab results. No leukocytosis. Mild microcytic anemia consistent with her recent baseline. No electrolyte abnormalities. Normal renal function 05/08/23 18:53 05/08/23 18:53 Labs: Lab Results 05/08/23 Range/Units 18:53 WBC 10.7 (4.8-10.8) X10*3/uL RBC 4.76 (4.20-5.50) X10*6/uL Hgb 10.0 L (12.0-16.0) g/dl Hct 32.5 L (37.0-47.0) % MCV 68.3 L (80.0-98.0) fL MCH 21.0 L (27.0-33.0) pg MCHC 30.8 L (31.0-35.0) g/dl RDW 17.0 H (11.0-16.0) % Plt Count 565 H (160-400) X10*3/uL MPV 9.9 (9.4-12.3) fL Immature Gran % (Auto) 0.3 (0.0-0.4) % Neut % (Auto) 66.2 (45-73) % Lymph % (Auto) 23.2 (20-40) % [place] % (Auto) 6.6 (2-11) % Eos % (Auto) 3.3 (0-4) % Baso % (Auto) 0.4 (0-2) % Lymph # (Auto) 2.5 (1.2-4.9) X10*3/uL [place] # (Auto) 0.7 (0.1-1.2) X10*3/uL Eos # (Auto) 0.4 (0.0-0.4) X10*3/uL Baso # (Auto) 0.0 (0.0-0.2) X10*3/uL Abs Immat Gran (auto) 0.03 (0.00-0.03) X10*3/uL Absolute Neuts (auto) 7.1 (2.0-8.3) x10*3/uL Absolute Nucleated RBC 0.000 (0.0-0.012) X10*3/uL Nucleated RBC % (auto) 0.0 (0.0-0.2) /100WBC Sodium 140 (135-145) mmol/L Potassium 3.7 (3.3-5.1) mmol/L Chloride 108 (96-108) mmol/L Carbon Dioxide 22 (22-29) mmol/L Anion Gap 14 (12-20) BUN 12 (9-16) mg/dL Creatinine 0.72 (0.5-1.4) mg/dL Estim Creat Clear Calc 114.7 Estimated GFR > 60 Random Glucose 105 (60-115) mg/dL Calcium 9.0 (8.4-10.2) mg/dL Total Bilirubin 0.2 (0.0-1.0) mg/dL AST 15 (5-31) U/L ALT 10 (0-31) U/L Alkaline Phosphatase 68 (39-117) U/L Total Protein 8.4 H (6.5-8.0) g/dL Albumin 3.9 (3.5-5.0) g/dL Urine Color Other A Urine Appearance Turbid Urine pH 1.0 L (5.0-9.0) Ur Specific [place] 1.025 (1.005-1.025) Urine Protein 100 (2+) H (Neg-Trace) mg/dL Urine Glucose (UA) Negative (Negative) mg/dL Urine Ketones Negative (Negative) mg/dL Urine Blood Large (3+) H (Negative) Urine Nitrite Positive H (Negative) Ur Leukocyte Esterase Trace H (Negative) Urine RBC >20 H (0-2) /HPF Urine WBC 21-50 H (0-5) /HPF Ur Squamous Epith Cells 6-10 (0-2) /HPF Urine Bacteria Trace (None Seen) Hyaline Casts 0-2 (0-2) /LPF Urine Test NEGATIVE (NEGATIVE) Medications Administered Discontinued Medications Generic Name Dose Route Start Last Admin Trade Name Freq PRN Reason Stop Dose Admin Ketorolac Tromethamine 30 mg 05/08/23 22:20 05/08/23 22:30 Ketorolac Tromethamine 30 Mg/Ml Vial IM 05/08/23 22:21 30 mg ONCE ONE Administration Discharge Plan Discharge Clinical Impression: Abdominal pain, Vaginal bleeding, Urinary tract infection Patient Disposition: Home, Self-Care Instructions: Urinary Tract Infection in Women (ED) Additional Instructions: Your workup in the emergency department today was reassuring You do have a urinary tract infection Take the antibiotics twice daily for the next 5 days Use the Pyridium to help with discomfort Your ultrasound did not show any concerning abnormalities You may follow-up with your primary doctor or glass washer whose number is provided Prescriptions: New cefuroxime axetil 250 mg tablet 250 mg PO Q12H Qty: 10 0RF phenazopyridine [Pyridium] 200 mg tablet 200 mg PO TID Qty: 6 0RF No Action metronidazole [Flagyl] 500 mg tablet 500 mg PO BID 7 Days Qty: 14 0RF miconazole nitrate [Monistat 7] 2 % cream 1 appful vaginal BEDTIME 7 Days Qty: 45 0RF ferrous sulfate 325 mg (65 mg iron) tablet,delayed release (DR/EC) 325 mg PO BID 30 Days Qty: 60 3RF docusate sodium [Colace] 100 mg capsule 100 mg PO BID PRN (Reason: constipation) 30 Days Qty: 60 3RF prednisone 50 mg tablet 50 mg PO DAILY 4 Days Qty: 4 0RF One A Day Women's DHA 28 mg iron- 800 mcg combo pack 1 pkg PO DAILY Qty: 90 3RF loratadine [Allergy Relief (loratadine)] 10 mg tablet 10 mg PO DAILY PRN (Reason: allergy symptoms) Qty: 30 1RF famotidine [Pepcid] 20 mg tablet 20 mg PO BID Qty: 60 3RF Vitamin 27 mg iron- 800 mcg tablet 1 tab PO DAILY Qty: 30 5RF sertraline 50 mg tablet 50 mg PO DAILY Qty: 20 0RF Referrals: Faraz Corbin MD [Physician] - (Dysmenorrhea)
[2023-05-08 20:56] VITALS: BP 126/71; PULSE 79; RESP 18; TEMP 36.9; O2SAT 99
[2023-05-08 22:05] VITALS: BP 120/77; PULSE 71; RESP 18; TEMP 36.8; O2SAT 99
[2023-05-08] MEDS: Ketorolac Tromethamine 30 MG/ML VIAL IM (22:30)
== END 2023-05-09 01:32 | disposition home or self-care (01) ==
PROVIDERS: Emergency Provider Student in an Organized Health Care Education/Training Program; PCP Family Medicine
DX: N39.0 Urinary tract infection, site not specified (principal); R10.30 Lower abdominal pain, unspecified; N93.9 Abnormal uterine and vaginal bleeding, unspecified
CPT/HCPCS: 36415; 76830; 76856; 80053; 81001; 81025; 85025; 87086; 87147; 96372; 99284; J1885

== ENCOUNTER 2024-09-01 09:15 | Emergency (ER) | payer MEDICAID, SELFPAY ==
--- NOTE | ~2024-09-01 | XR_ITS ---
EXAMINATION: XR KNEE 3 VIEWS LEFT HISTORY: pain COMPARISON: There are no prior studies available for comparison. FINDINGS: Four views of the left knee are submitted. Osseous mineralization is normal. There is no fracture or dislocation. There is moderate osteoarthritis of the medial compartment with joint space narrowing and osteophyte formation. There is a large suprapatellar joint effusion. XR/XR knee LT 3V IMPRESSION: Large joint effusion. Moderate osteoarthritis of the medial compartment. Electronically signed by: Al Christopher MD 09/01/2024 09:55 AM TAMARA
[2024-09-01 09:21] VITALS: BP 120/64; PULSE 93; RESP 16; TEMP 36.2; O2SAT 98; BMI 30.5
[2024-09-01 11:36] VITALS: BP 129/55; PULSE 81; RESP 16; TEMP 36.3; O2SAT 99
--- NOTE | 2024-09-01 11:45 | ED.GENADULT ---
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 Denies recent fall or other trauma. History of effusion in the past which was drained. Denies fevers/chills/body aches. Denies redness or warmth. Denies calf pain or swelling. Difficulty ambulating due to swelling. MD complaint: knee pain Onset (ago): day(s) Related Data Previous Rx's ?Medication ?Instructions ?Recorded vits 75-iron 28 mg-folic 1 pkg PO DAILY #90 ea 04/11/20 acid 800 mcg-omega-3 oral combo pack (One A Day Women's DHA) loratadine 10 mg tablet (Allergy 10 mg PO DAILY PRN allergy 06/06/20 Relief (loratadine)) symptoms #30 tabs metronidazole 500 mg tablet 500 mg PO BID 7 days #14 tabs 06/28/20 (Flagyl) miconazole nitrate 2 % vaginal 1 appful vaginal BEDTIME 7 days 06/28/20 cream (Monistat 7) #45 grams sertraline 50 mg tablet 50 mg PO DAILY #20 tabs 07/25/20 docusate sodium 100 mg capsule 100 mg PO BID PRN constipation 30 07/26/20 (Colace) days #60 caps ferrous sulfate 325 mg (65 mg 325 mg PO BID 30 days #60 tabs 07/26/20 iron) tablet,delayed release famotidine 20 mg tablet (Pepcid) 20 mg PO BID #60 tabs 09/07/20 vits no.130-ferrous fum 1 tab PO DAILY #30 tabs 09/07/20 27 mg iron-folic acid 800 mcg tablet ( Vitamin) prednisone 50 mg tablet 50 mg PO DAILY 4 days #4 tabs 09/28/22 cefuroxime axetil 250 mg tablet 250 mg PO Q12H #10 tabs 05/08/23 phenazopyridine 200 mg tablet 200 mg PO TID 6 doses #6 tabs 05/08/23 (Pyridium) Allergies Allergy/AdvReac Type Severity Reaction Status Date / Time No Known Allergies Allergy Verified 09/01/24 09:24 Review of Systems Review of Systems: As per HPI Yes all other systems are reviewed and are negative Constitutional: Constitutional: Reports as per HPI [facility] Past Medical History Medical History Depression Patient denies medical problems Positive depression screening Surgical History No pertinent past surgical history Family History Family History Father History of asthma Hx of diabetes mellitus Hx of cancer of lung History of mental problems Family hx of hypertension Hx of cardiovascular disorder Mother Hx of thyroid disease Brother History of ADHD Paternal Grandmother Family hx of hypertension Social History Social History Unable to assess alcohol history related to: Unknown Alcohol intake: never Advance Directives: No Advance Directives Information Provided: Yes Do you have a plan to hurt others: No Plan Sexual orientation: Straight/Heterosexual Gender identity: Female Physical Exam ED Vital Signs: Vital Signs - 24 hr 09/01/24 09:21 09/01/24 11:36 09/01/24 11:52 Temperature 97.2 F 97.4 F 97.4 F Pulse Rate 93 81 81 Respiratory Rate 16 16 16 Blood Pressure 120/64 129/55 L 129/55 L Pulse Oximetry 98 99 99 Oxygen Delivery Method Room Air Room Air Room Air BMI result Body Mass Index 30.5 Vital signs have been reviewed and appear to be correct. Blood pressure normal. Heart rate normal. Respiratory rate normal. Temperature normal. Oxygen saturation normal. Const General: cooperative, healthy appearing and no acute distress Orientation/consciousness: oriented to person, oriented to place, oriented to time and patient oriented x3 Limitations: no limitations HENMT Head: Yes normocephalic and Yes atraumatic Ears: external ears normal General nose exam: Normal external nose present Face and sinus: Yes face symmetric Mouth: oropharynx normal and moist mucous membranes Throat: Yes uvula midline Eyes Pupils: Equal, round and reactive pupils present Neck Neck: Yes normal visual inspection and Yes supple Resp Effort & Inspection: normal respiratory effort and able to speak in complete sentences Auscultation: clear to auscultation bilaterally Cardio Rate: regular rate Rhythm: regular rhythm Heart sounds: S1 normal heart sound present and S2 normal heart sound present GI Palpation (GI): Soft to palpation and nontender Auscultation: normoactive bowel sounds General: Yes no CVA tenderness Back/Spine/Pelvis Back: no CVA tenderness Skin General skin exam: elasticity normal and turgor normal Neuro General: oriented to person, oriented to place, oriented to time, patient oriented x3, moves all extremities, no focal motor deficits and CN's II-XI intact bilaterally Cranial nerves: Yes Equal, round and reactive pupils present Cognition (Neuro): normal cognition Extrem General: Yes full ROM, Yes no pedal edema and Yes no calf tenderness Left lower extremity: knee Details: tenderness (diffuse), swelling (diffuse) and abnormal ROM (limited d/t swelling), lower leg Details: no erythema, no tenderness, no palpable cords and no unusual warmth and foot Details: vascular exam Details: dorsalis pedis pulse present, posterior tibial pulse present and normal capillary refill Psych Mental Status: mental status grossly normal Affect: normal affect Thought process: Normal thought process present Medical Decision Making Medical Decision Making [facility] Narrative: Patient is a 29-year-old Icelandic speaking female presenting to the ED with complaint of left knee pain and swelling for the past few days. On exam patient is awake, A+Ox3, VS WNL, afebrile, normal neurological exam without focal deficits, physical exam findings as above. Given reported symptoms and physical exam findings, initial differential includes but is not limited to effusion, strain, sprain, fracture. X-ray left knee notable for large effusion. My interpretation is in agreement with the radiologist's interpretation. Results discussed with patient and all questions answered. Do not suspect septic joint. Patient provided with EVANS wrap and referred to ortho for further evaluation and management. Return precautions discussed. Patient verbalized understanding of and agreement with plan. Differential Diagnosis Differential Diagnoses: The differential diagnosis associated with the presentation includes As per MDM Independent Interpretation I performed an independent interpretation of an: Plain X-Ray Interpretation: Large effusion left knee Radiology Impression Discussion of test interpretation with radiology: I have reviewed the radiologist's reading. Radiologist Impression: FINDINGS: Four views of the left knee are submitted. Osseous mineralization is normal. There is no fracture or dislocation. There is moderate osteoarthritis of the medial compartment with joint space narrowing and osteophyte formation. There is a large suprapatellar joint effusion. XR/XR knee LT 3V IMPRESSION: Large joint effusion. Moderate osteoarthritis of the medial compartment. External Record Review External record reviewed: Inpatient record, Office record and Outpatient record Discharge Plan Discharge Clinical Impression: Effusion of left knee Patient Disposition: Home, Self-Care Instructions: How to Use an Elastic Bandage (ED), Swollen Knee Joint (ED), Swollen Joint (ED), Joint Aspiration (DC) Additional Instructions: You were evaluated in the emergency department today for knee pain and swelling. Your x-ray shows fluid around your knee. We recommend that you call the orthopedic office to schedule a follow-up appointment. You were provided with an Evans bandage in the emergency department today, use this as demonstrated. Keep your leg elevated as much as possible while at rest. Return to the emergency department if you develop worsening pain, increased swelling, new redness or warmth, fever or any other new or concerning symptoms. Prescriptions: No Action metronidazole [Flagyl] 500 mg tablet 500 mg PO BID 7 Days Qty: 14 0RF miconazole nitrate [Monistat 7] 2 % cream 1 appful vaginal BEDTIME 7 Days Qty: 45 0RF ferrous sulfate 325 mg (65 mg iron) tablet,delayed release (DR/EC) 325 mg PO BID 30 Days Qty: 60 3RF docusate sodium [Colace] 100 mg capsule 100 mg PO BID PRN (Reason: constipation) 30 Days Qty: 60 3RF prednisone 50 mg tablet 50 mg PO DAILY 4 Days Qty: 4 0RF cefuroxime axetil 250 mg tablet 250 mg PO Q12H Qty: 10 0RF phenazopyridine [Pyridium] 200 mg tablet 200 mg PO TID Qty: 6 0RF One A Day Women's DHA 28 mg iron- 800 mcg combo pack 1 pkg PO DAILY Qty: 90 3RF loratadine [Allergy Relief (loratadine)] 10 mg tablet 10 mg PO DAILY PRN (Reason: allergy symptoms) Qty: 30 1RF famotidine [Pepcid] 20 mg tablet 20 mg PO BID Qty: 60 3RF Vitamin 27 mg iron- 800 mcg tablet 1 tab PO DAILY Qty: 30 5RF sertraline 50 mg tablet 50 mg PO DAILY Qty: 20 0RF Referrals: [facility] [Provider Group] - 1 week (FINDINGS: Four views of the left knee are submitted. Osseous mineralization is normal. There is no fracture or dislocation. There is moderate osteoarthritis of the medial compartment with joint space narrowing and osteophyte formation. There is a large suprapatellar joint effusion. XR/XR knee LT 3V IMPRESSION: Large joint effusion. Moderate osteoarthritis of the medial compartment. ) Stand Alone Forms: Work/School Release Interventions: ED Discharge Assessment Last Done: 09/01/24 11:52 Discharge Date/Time: 09/01/24 11:53 Print Language: Icelandic
[2024-09-01 11:52] VITALS: BP 129/55; PULSE 81; RESP 16; TEMP 36.3; O2SAT 99
--- OUTSIDE RECORDS SUMMARY | 2024-09-01 14:21 | XMS_ITS | Encounter Summary ---
Author Organization [facility] Address [address] [place] [address] Care Team Providers Care Chinese Teacher Name Role Phone Unavailable Primary Care Provider Unavailabl e Encounter Details Date Type Department Care Team (Late st Contact Info) Description 09/01/2024 Orders Only [facility] External Provider, [facility] Social History Tobacco Use Types Packs/Day Years Used Date Smoking Tobacco: Never Assessed Comments Unknown Sex and Gender Information Value Date Recorded Sex Assigned at Female 05/07/2022 10:22 AM EDT Legal Sex Female 10:22 AM EDT Gender Identity Female 05/07/2022 10:22 AM EDT Sexual Orientation Bisexual 05/07/2022 10 :22 AM EDT documented as of this encounter Plan of Treatment Not on file documented as of this encounter Procedures Procedure Name Priority Date/Time Associated Diagnosis Comments XR KNEE 3 VIEWS LEFT Routine 09/01/2024 9:40 AM EST documented in this encounter Results * XR Knee 3 Views Left (09/01/2024 9:40 AM EST) Anatomical Region Laterality Modality Lower Extremities, Knee Left Radiogra phic Imaging 09/01/2024 9:40 AM EST Narrative 09/01/2024 9:58 AM EST ? [facility] ?[address] ?[place] [address] ?XRay Report ? Signed ? Patient: Holley Klein ?MR#: [id number] ?? [id number] ? : 1995 ?Acct:[id number] ? Age/Sex: 29 / F ?ADM Date: 02/25/25 ? Loc: HO.ED ? Attending Dr: ? Ordering Physician: Generic ED Physician ?? Date of Service: 09/01/24 ?? Procedure(s): XR knee LT 3V ?? Accession Number(s): [id number] ? cc: Generic ED Physician; Evon Hayes DO ? EXAMINATION: ??XR KNEE 3 VIEWS LEFT ? HISTORY: pain ? COMPARISON: There are no prior studies available for comparison. ? FINDINGS: ? Four views of the left knee are submitted. ??Osseous mineralization is ?? normal. ??There is no fracture or dislocation. ??There is moderate ?? osteoarthritis of the medial compartment with joint space narrowing and ?? osteophyte formation. ??There is a large suprapatellar joint effusion. ? XR/XR knee LT 3V ?? IMPRESSION: ? Large joint effusion. Moderate osteoarthritis of the medial ?? compartment. ? Electronically signed by: ??Al Christopher MD ??09/01/2024 09:55 AM EST ?? RP ? Dictated By: ?Al Christopher MD ? Signed By: ?<Electronically signed by Al Christopher MD in OV> ?09/01/24 0955 ? DD/ 0940 ? TD/TT: 09/01/24 0951 ? Director Staffing: ? Procedure Note Corey Godinez - 09/01/[address] [address] XRay Report Signed Patient: Holley KleinMR#: [id number] : 1995Acct:[id number] Age/Sex: 29 / FADM Date: 09/01/24 Loc: .ED Attending Dr: Ordering Physician: Generic ED Physician Date of Service: 09/01/24 Procedure(s): XR knee LT 3V Accession Number(s): [id number] cc: Generic ED Physician; Evon Hayes DO EXAMINATION: XR KNEE 3 VIEWS LEFT HISTORY: pain COMPARISON: There are no prior studies available for comparison. FINDINGS: Four views of the left knee are submitted. Osseous mineralization is normal. There is no fracture or dislocation. There is moderate osteoarthritis of the medial compartment with joint space narrowing and osteophyte formation. There is a large suprapatellar joint effusion. XR/XR knee LT 3V IMPRESSION: Large joint effusion. Moderate osteoarthritis of the medial compartment. Electronically signed by: Al Christopher MD 09/01/2024 09:55 AM EST Dictated By: Al Christopher MD Signed By: <Electronically signed by Al Christopher MD in OV> 09/01/2455 DD/ TD/TT: 09/01/2451 Director Staffing: [facility] External Provider IMG XR PROCEDURES Final Result documented in this encounter Visit Diagnoses Not on filedocumented in this encounter
--- OUTSIDE RECORDS SUMMARY | 2024-09-01 14:21 | XMS_ITS | Clinical Summary ---
Author Organization [employer] Address [address] [place] [address] [address] [place] [address] Care Team Providers Care Intel Recruiter Name Role Phone Unavailable Primary Care Provider Unavailabl e Encounters Date Type Department Care Team Description 09/01/2024 Orders Only [facility] External Provider, [facility] from Last 3 Months Social History Tobacco Use Types Packs/Day Years Used Date Smoking Tobacco: Never Assessed Comments Unknown Sex and Gender Information Value Date Recorded Sex Assigned at Female 05/07/2022 10:22 AM EDT Legal Sex Female 10:22 AM EDT Gender Identity Female 05/07/2022 10:22 AM EDT Sexual Orientation Bisexual 05/07/2022 10 :22 AM EDT Plan of Treatment Health Maintenance Due Date Last Done Comments Depression Screening 1996 HIV Screening 1996 SDOH Screening 1996 Alcohol/Substance Use Screening 2008 Tobacco Screening 2008 Family Planning (PISQ) 01/30/2011 Hepatitis C Screening 01/30/2014 Pap Smear 01/30/2017 DTaP/Tdap/Td Vaccines (6 - Td or Tdap) 09/24/2021 09/25/2011, 02/09/2000, 01/06/1998, Additional history exists COVID-19 Vaccine ( season) 2024 Influenza Vaccine (#1) 2024 9, 05/10/2017, 06/23/2013, Additional history exists Zoster Vaccines (1 of 2) 01/30/2046 RSV Patients and Patients Aged 60 years or older (1 - 1-dose 75+ series) 01/30/2071 HIB Vaccines Completed 01/06/1998, 09/07, 1996, Additional history exists IPV Vaccines Completed 02/09/2000, 09/07, 1996, Additional history exists Meningococcal Vaccine Completed 02/08/2012 Hepatitis A Vaccines Completed 02/11/2013, 04/01/20 12 HPV Vaccines Completed 06/23/2013, 08/0 01/2013, 02/08/2012 Hepatitis B Vaccines Completed 05/04/2019, 1996, 1996, Additional history exists Pneumococcal Vaccine: Pediatrics (0 to 5 Years) and At-Risk Patients (6 to 49) Years) Aged Out No longer eligible based on patient's age to complete this topic RSV under 20 months Aged Out No longe r eligible based on patient's age to complete this topic Rotavirus Vaccines Aged Out No longer eligible based on patient's age to complete this topic Procedures Procedure Name Priority Date/Time Associated Diagnosis Comments XR KNEE 3 VIEWS LEFT Routine 09/01/2024 9:40 AM EST from Last 3 Months Results * XR Knee 3 Views Left (09/01/2024 9:40 AM EST) Anatomical Region Laterality Modality Lower Extremities, Knee Left Radiogra phic Imaging 09/01/2024 9:40 AM EST Narrative 09/01/2024 9:58 AM EST ? [facility] ?[address] ?[place] [address] ?XRay Report ? Signed ? Patient: Holley Klein ?MR#: [id number] ?? [id number] ? : 1995 ?Acct:[id number] ? Age/Sex: 29 / F ?ADM Date: 09/01/24 ? Loc: HO.ED ? Attending Dr: ? Ordering Physician: Generic ED Physician ?? Date of Service: 09/01/24 ?? Procedure(s): XR knee LT 3V ?? Accession Number(s): [id number] ? cc: Generic ED Physician; Evon Hayes [...] DD/ 0940 ? TD/TT: 09/01/24 0951 ? Heel Sprayer First: ? Procedure Note Herbert, Image - 09/01/[address] [address] XRay Report Signed Patient: Holley KleinMR#: [id number] : 1995Acct:[id number] Age/Sex: 29 / FADM Date: 09/01/24 Loc: HO.ED Attending Dr: Ordering Physician: Generic ED Physician Date of Service: 09/01/24 Procedure(s): XR knee LT 3V Accession Number(s): [id number] cc: Generic ED Physician; Evon Hayes DO [...] signed by Al Christopher MD in OV> 09/01/24954 DD/ 9 TD/TT: 09/01/24950 Heel Sprayer First: [facility] External Provider IMG XR PROCEDURES Final Result from Last 3 Months Insurance [facility] C3
== END 2024-09-01 11:53 | disposition home or self-care (01) ==
PROVIDERS: Emergency Provider Emergency Medicine; PCP Family Medicine
DX: M25.462 Effusion, left knee (principal); M25.562 Pain in left knee
CPT/HCPCS: 73562; 99282; 99283

== ENCOUNTER → 2024-09-01 09:40 | Outpatient (BNV) | payer MEDICAID, SELFPAY | PROVIDERS: PCP Family Medicine; Visit Provider Radiology Diagnostic Radiology | DX: M17.12 Unilateral primary osteoarthritis, left knee (principal); M25.462 Effusion, left knee | CPT/HCPCS: 73562 ==

== ENCOUNTER 2024-09-08 17:53 | Emergency (ER) | payer MEDICAID, SELFPAY ==
--- NOTE | ~2024-09-08 | XR_ITS ---
CLINICAL HISTORY: swelling, pain 4 view left knee Comparison: CR/SR - XR KNEE LT 3V - 09/01/24 09:53 EST Findings: Bones intact. No dislocations. Mild degenerative disease with joint space narrowing and tricompartmental spurring. Hfconafs-yg-onmip joint effusion. No radiopaque foreign body. IMPRESSION: 1. Moderate to large joint effusion. 2. Mild DJD. This document has been electronically signed by: Analy Hilario MD on 09/08/2024 19:18:40
[2024-09-08 18:02] VITALS: BP 128/74; PULSE 94; RESP 18; TEMP 36.8; O2SAT 100
--- NOTE | 2024-09-08 18:18 | ED_ITS ---
HPI - Extremity Injury (Lower) General Chief Complaint: Extremity Injury, Lower Stated Complaint: leg pain both legs Time Seen by Provider: 09/08/24 18:17 Related Data Previous Rx's ?Medication ?Instructions ?Recorded vits 75-iron 28 mg-folic 1 pkg PO DAILY #90 ea 04/11/20 acid 800 mcg-omega-3 oral combo pack (One A Day Women's DHA) loratadine 10 mg tablet (Allergy 10 mg PO DAILY PRN allergy 06/06/20 Relief (loratadine)) symptoms #30 tabs metronidazole 500 mg tablet 500 mg PO BID 7 days #14 tabs 06/28/20 (Flagyl) miconazole nitrate 2 % vaginal 1 appful vaginal BEDTIME 7 days 06/28/20 cream (Monistat 7) #45 grams sertraline 50 mg tablet 50 mg PO DAILY #20 tabs 07/25/20 docusate sodium 100 mg capsule 100 mg PO BID PRN constipation 30 07/26/20 (Colace) days #60 caps ferrous sulfate 325 mg (65 mg 325 mg PO BID 30 days #60 tabs 07/26/20 iron) tablet,delayed release famotidine 20 mg tablet (Pepcid) 20 mg PO BID #60 tabs 09/07/20 vits no.130-ferrous fum 1 tab PO DAILY #30 tabs 09/07/20 27 mg iron-folic acid 800 mcg tablet ( Vitamin) prednisone 50 mg tablet 50 mg PO DAILY 4 days #4 tabs 09/28/22 cefuroxime axetil 250 mg tablet 250 mg PO Q12H #10 tabs 05/08/23 phenazopyridine 200 mg tablet 200 mg PO TID 6 doses #6 tabs 05/08/23 (Pyridium) Allergies Allergy/AdvReac Type Severity Reaction Status Date / Time No Known Allergies Allergy Verified 09/08/24 18:06 [facility] Past Medical History Medical History Depression Patient denies medical problems Positive depression screening Surgical History No pertinent past surgical history Family History Family History Father History of asthma Hx of diabetes mellitus Hx of cancer of lung History of mental problems Family hx of hypertension Hx of cardiovascular disorder Mother Hx of thyroid disease Brother History of ADHD Paternal Grandmother Family hx of hypertension Social History Social History Unable to assess alcohol history related to: Unknown Alcohol intake: never Advance Directives: No Advance Directives Information Provided: No Sexual orientation: Straight/Heterosexual Gender identity: Female Physical Exam Vital Signs: Vital Signs: Last Vital Signs Temp 98.3 F 09/08/24 18:02 Pulse 94 09/08/24 18:02 Resp 18 09/08/24 18:02 BP 128/74 09/08/24 18:02 Pulse Ox 100 09/08/24 18:02 O2 Del Method Room Air 09/08/24 18:02 BMI result Body Mass Index 6.2 Course Course Course Narrative: This is an RME: Additional HPI, ROS, PE not included below will be deferred to primary provider. RME assessment and note performed by: Skylar Melchor PA-C This is a 29-year-old female who presents emergency department with complaints of left knee pain and swelling. patient was seen here last week, was placed in an Evans wrap and was told to follow-up with Orthopedics. She states that her pain and swelling is only increasing. Unable to visualize in triage as she is unable to pull her pant leg up all the way. She does have moderate effusion noted to the medial joint line. She states that she previously had to have this area drained. Plan: repeat x-rays, further ER evaluation needed. Reevaluation(s) Reevaluation #1: Patient left without completing treatment. Discharge Plan Discharge Clinical Impression: Knee effusion, left Patient Disposition: Left W/O Completing Treatment Prescriptions: No Action metronidazole [Flagyl] 500 mg tablet 500 mg PO BID 7 Days Qty: 14 0RF miconazole nitrate [Monistat 7] 2 % cream 1 appful vaginal BEDTIME 7 Days Qty: 45 0RF ferrous sulfate 325 mg (65 mg iron) tablet,delayed release (DR/EC) 325 mg PO BID 30 Days Qty: 60 3RF docusate sodium [Colace] 100 mg capsule 100 mg PO BID PRN (Reason: constipation) 30 Days Qty: 60 3RF prednisone 50 mg tablet 50 mg PO DAILY 4 Days Qty: 4 0RF cefuroxime axetil 250 mg tablet 250 mg PO Q12H Qty: 10 0RF phenazopyridine [Pyridium] 200 mg tablet 200 mg PO TID Qty: 6 0RF One A Day Women's DHA 28 mg iron- 800 mcg combo pack 1 pkg PO DAILY Qty: 90 3RF loratadine [Allergy Relief (loratadine)] 10 mg tablet 10 mg PO DAILY PRN (Reason: allergy symptoms) Qty: 30 1RF famotidine [Pepcid] 20 mg tablet 20 mg PO BID Qty: 60 3RF Vitamin 27 mg iron- 800 mcg tablet 1 tab PO DAILY Qty: 30 5RF sertraline 50 mg tablet 50 mg PO DAILY Qty: 20 0RF Discharge Date/Time: 09/08/24 23:15
== END 2024-09-08 23:15 | disposition left against medical advice (07) ==
LOC: HO.ED 23:06
PROVIDERS: Emergency Provider Emergency Medicine
DX: M79.604 Pain in right leg (principal); M79.605 Pain in left leg; M25.462 Effusion, left knee; M25.461 Effusion, right knee
CPT/HCPCS: 73562; 99281; 99283

== ENCOUNTER → 2024-09-08 18:07 | Outpatient (BNV) | payer MEDICAID, SELFPAY | PROVIDERS: Visit Provider Student in an Organized Health Care Education/Training Program | DX: M25.462 Effusion, left knee (principal) | CPT/HCPCS: 73562 ==

== ENCOUNTER 2024-10-11 01:57 | Emergency (ER) | payer MEDICAID, SELFPAY ==
[2024-10-11 02:03] VITALS: PULSE 123; RESP 22; TEMP 36.9; O2SAT 98; BMI 29.3
[2024-10-11 02:05] LABS: Glucose, Whole Blood 109 mg/dL (60-115)
--- NOTE | 2024-10-11 02:06 | MHC.EDTECH ---
Patient was changed into hospital attire,placed on the groundwater monitoring technician,vitals taken, security went through pts belongings,belonging list completed and locked in the [facility] [[email or web address] SHELF #1
[2024-10-11 02:48] LABS: Amphetamine Screen Urine Not Detected (Not Detect); Barbiturates, Urine Not Detected (Not Detect); Benzodiazepines Screen Urine Not Detected (Not Detect); Buprenorphine Scr Not Detected (Not Detect); Cannabinoid Screen Urine Not Detected (Not Detect); Cocaine Screen Urine Not Detected (Not Detect); Fentanyl, urine Not Detected (Not Detect); Methadone Screen, Urine Not Detected (Not Detect); Opiate Screen Urine Not Detected (Not Detect); Oxycodone Screen Urine Not Detected (Not Detect); Phencyclidine Screen Urine Not Detected (Not Detect)
[2024-10-11] MEDS: LORazepam 2 MG/ML VIAL IVPUSH (02:50)
[2024-10-11 02:51] LABS: Ethanol 126 mg/dL
--- OUTSIDE RECORDS SUMMARY | 2024-10-11 02:52 | XMS_ITS | Clinical Summary ---
Author Organization [employer] [facility] Address [address] [facility] [address] [place] [address] Care Team Providers Care Marketing/Sales Person Name Role Phone Unavailable Primary Care Provider Unavailabl e Encounters Date Type Department Care Team Description 09/24/2024 Telephone [facility] [address] [place] [phone] Chau Davidson MD New patient appt. 09/18/2024 Population Health Risk Score [facility] (C[facility]) Department [address] [place] [phone] Provider, Population Health Generic 09/01/2024 Orders Only [facility] External Provider, [facility] from Last 3 Months Social History Tobacco Use Types Packs/Day Years Used Date Smoking Tobacco: Never Assessed Comments Unknown Sex and Gender Information Value Date Recorded Sex Assigned at Female 05/07/2022 10:22 AM EDT Legal Sex Female 10:22 AM EDT Gender Identity Female 05/07/2022 10:22 AM EDT Sexual Orientation Bisexual 05/07/2022 10 :22 AM EDT Plan of Treatment Upcoming Encounters Date Type Department Care Team (Late st Contact Info) Description 01/01/2025 10:00 AM EDT Office Visit [facility] [address] [place] [phone] Mary Newton MD [address] [place] [phone] Health Maintenance Due Date Last Done Comments [...] 02/08/2012 Hepatitis A Vaccines Completed 02/11/2013, 04/01/20 HPV Vaccines Completed 06/23/2013, 01/2013, 02/08/2012 Hepatitis B Vaccines Completed 05/04/2019, [...] Laterality Modality Lower Extremities, Knee Left [facility] 09/01/2024 9:40 AM EST Narrative 09/01/2024 9:58 AM EST ? [facility] ?[address] ?[place] [address] ?XRay Report ? Signed ? Patient: Klein,Holley ?MR#: [id number] ?? [id number] ? : 1995 ?Acct:[id number] ? Age/Sex: 29 / F ?ADM Date: 02/25/25 ? Loc: HO.ED ? Attending Dr: ? Ordering Physician: Generic ED Physician ?? Date of Service: 09/01/24 ?? Procedure(s): XR knee LT 3V ?? Accession Number(s): [id number] ? cc: Generic ED Physician; Evon Hayes [...] ??Al Christopher MD ??09/01/2024 09:55 AM EST ? Dictated By: ?Al Christopher MD ? Signed By: ?<Electronically signed by Al Christopher MD in OV> ?09/01/24 0955 ? DD/ ? TD/TT: 09/01/2451 ? Adolescent Coordinator: ? Procedure Note Corey Godinez - 09/01/2024 [place] [address] XRay Report Signed Patient: Holley Klein#: [id number] : 1995Acct:[id number] Age/Sex: 29 / FADM Date: 09/01/24 Loc: HO.ED Attending Dr: Ordering Physician: Generic ED Physician Date of Service: 09/01/24 Procedure(s): XR knee LT 3V Accession Number(s): [id number] cc: Generic ED Physician; Evon Hayes DO [...] in OV> 09/01/24954 DD/ 9 TD/TT: 09/01/24950 Adolescent Coordinator: [facility] External Provider IMG XR PROCEDURES Final Result from Last 3 Months Insurance [facility] C3
[2024-10-11 03:04] LABS: Alanine Aminotransferase 11 U/L (0-31); Albumin Level 4.3 g/dL (3.5-5.0); Alkaline Phosphatase 79 U/L (39-117); Anion Gap 20 (12-20); Aspartate Amino Transferase 21 U/L (5-31); Bilirubin Direct < 0.2 mg/dL (0.0-0.5); Bilirubin Total 0.1 mg/dL (0.0-1.0); Blood Urea Nitrogen 12 mg/dL (9-16); Carbon Dioxide 16 mmol/L (22-29); Chloride 108 mmol/L (96-108); Creatinine Clr Calc Pharmacy 120.2; Estimated Glomerular Filt Rate > 60; Glucose Random 107 mg/dL (60-115); HCG Quantitative < 2 mIU/mL; Potassium 2.9 mmol/L (3.3-5.1); Sodium 141 mmol/L (135-145); Total Protein 9.2 g/dL (6.5-8.0)
--- NOTE | 2024-10-11 03:20 | MHC.EDTECH ---
Patient's CBC recollect delayed due to miscommunication, T/W and RN were not made aware, drawn and sent to lab at this time
[2024-10-11 03:24] LABS: Hematocrit 28.5 % (37.0-47.0); Hemoglobin 9.2 g/dl (12.0-16.0); Mean Corpuscular HGB Conc 32.3 g/dl (31.0-35.0); Mean Corpuscular Hemoglobin 21.8 pg (27.0-33.0); Mean Corpuscular Volume 67.5 fL (80.0-98.0); Platelet Count 555 X10*3/uL (160-400); Red Blood Count 4.22 X10*6/uL (4.20-5.50); Red Cell Distribution Width 14.7 % (11.0-16.0); White Blood Count 12.4 X10*3/uL (4.8-10.8)
[2024-10-11 03:25] LABS: Basophils Percent Auto 0.2 % (0-2); Eosinophils Absolute Auto 0.2 X10*3/uL (0.0-0.4); Eosinophils Percent Auto 1.4 % (0-4); Imm Gran Abs Auto 0.04 X10*3/uL (0.00-0.03); Imm Gran Pct Auto 0.3 % (0.0-0.4); Lymphocytes Absolute Auto 2.5 X10*3/uL (1.2-4.9); Lymphocytes Percent Auto 20.2 % (20-40); Mean Platelet Volume 9.6 fL (9.4-12.3); Monocytes Absolute Auto 0.7 X10*3/uL (0.1-1.2); Neutrophils Absolute Auto 8.9 x10*3/uL (2.0-8.3); Neutrophils Percent Auto 71.9 % (45-73)
[2024-10-11 04:00] VITALS: BP 131/78; PULSE 93; RESP 16; TEMP 36.6; O2SAT 98
[2024-10-11 06:30] VITALS: BP 108/53; PULSE 86; RESP 20; TEMP 36.2; O2SAT 97
--- NOTE | 2024-10-11 07:37 | ED_ITS ---
HPI - Anxiety General Chief Complaint: Anxiety Stated Complaint: Seizure? Time Seen by Provider: 10/11/24 02:18 Source: patient Mode of arrival: wheelchair Limitations: no limitations History of Present Illness ED Provider: Dr. Ashlie Arroyo HPI narrative: Patient was brought to the emergency room by 2 friends. Earlier today, patient was in a collar up drinking. Patient started having a panic attack, hyperventilating. On arrival to triage, patient had pseudo-seizure. According to the patient's friends who were there with her, they denied the patient had any kind of injury, no falls. But they noted that the patient drank a lot of alcohol and smoke marijuana. Related Data Previous Rx's ?Medication ?Instructions ?Recorded vits 75-iron 28 mg-folic 1 pkg PO DAILY #90 ea 04/11/20 acid 800 mcg-omega-3 oral combo pack (One A Day Women's DHA) loratadine 10 mg tablet (Allergy 10 mg PO DAILY PRN allergy 06/06/20 Relief (loratadine)) symptoms #30 tabs metronidazole 500 mg tablet 500 mg PO BID 7 days #14 tabs 06/28/20 (Flagyl) miconazole nitrate 2 % vaginal 1 appful vaginal BEDTIME 7 days 06/28/20 cream (Monistat 7) #45 grams sertraline 50 mg tablet 50 mg PO DAILY #20 tabs 07/25/20 docusate sodium 100 mg capsule 100 mg PO BID PRN constipation 30 07/26/20 (Colace) days #60 caps ferrous sulfate 325 mg (65 mg 325 mg PO BID 30 days #60 tabs 07/26/20 iron) tablet,delayed release famotidine 20 mg tablet (Pepcid) 20 mg PO BID #60 tabs 09/07/20 vits no.130-ferrous fum 1 tab PO DAILY #30 tabs 09/07/20 27 mg iron-folic acid 800 mcg tablet ( Vitamin) prednisone 50 mg tablet 50 mg PO DAILY 4 days #4 tabs 09/28/22 cefuroxime axetil 250 mg tablet 250 mg PO Q12H #10 tabs 05/08/23 phenazopyridine 200 mg tablet 200 mg PO TID 6 doses #6 tabs 05/08/23 (Pyridium) Allergies Allergy/AdvReac Type Severity Reaction Status Date / Time No Known Allergies Allergy Verified 10/11/24 02:05 Review of Systems 2 Review of Systems: Yes Other (Having a full-blown panic attack unable to give good history) [facility] Past Medical History Medical History Depression Positive depression screening Patient denies medical problems Surgical History No pertinent past surgical history Family History Family History Father History of asthma Hx of diabetes mellitus Hx of cancer of lung History of mental problems Family hx of hypertension Hx of cardiovascular disorder Mother Hx of thyroid disease Brother History of ADHD Paternal Grandmother Family hx of hypertension Social History Social History Unable to assess alcohol history related to: Unknown Alcohol intake: never Advance Directives: No Do you have a plan to hurt others: No Plan Sexual orientation: Straight/Heterosexual Gender identity: Female Physical Exam 2 Vital Signs: Vital Signs: Last Vital Signs Temp 97.1 F 10/11/24 06:30 Pulse 86 10/11/24 06:30 Resp 20 10/11/24 06:30 BP 108/53 L 10/11/24 06:30 Pulse Ox 97 10/11/24 06:30 O2 Del Method Room Air 10/11/24 06:30 BMI result Body Mass Index 29.3 Const: Other: Appearance: Alert. Extremely anxious, having a panic attack Eyes: Pupils equal, round and reactive to light. ENT: Pharynx normal. Neck: Normal inspection. Neck supple. No lymph nodes noted. No crepitus CVS: Normal heart rate and rhythm. Pulses normal. Normal S1 and S2 Respiratory: No respiratory distress. Breath sounds normal. No Wheezing. No rales Abdomen: Soft and nontender. No rigidity. No distention. Skin: Skin warm and dry. Normal skin color. Normal skin turgor. Extremities: No lower extremity edema. No Lacerations. No Rash Neuro: Oriented X 3. No motor deficit. No sensory deficit. Moving all extremities. No slurred speech. CN 2 through 12 grossly intact Psych: Having a panic attack Medications Administered Discontinued Medications Generic Name Dose Route Start Last Admin Trade Name Freq PRN Reason Stop Dose Admin Lorazepam 2 mg 10/11/24 02:47 10/11/24 02:50 Lorazepam 2 Mg/Ml Vial IVPUSH 10/11/24 02:48 2 mg ONCE ONE Administration Medical Decision Making Medical Decision Making [facility] Narrative: My interpretation of labs: Patient's hematology is at baseline, potassium 2.9. Urine toxicology negative for drugs or abuse, ethanol level 126 On arrival, patient was given 2 mg IV of Ativan for panic attack. Patient was able to sleep well. Plan: Metabolize to freedom and discharge Differential Diagnosis Differential Diagnoses: The differential diagnosis associated with the presentation includes (Anxiety, panic attack, pseudo-seizure, alcohol intoxication) Lab Data [facility] Lab Attestation statement: I reviewed the patient's lab results. 10/11/24 03:20 10/11/24 02:27 Labs: Lab Results 10/11/24 10/11/24 10/11/24 Range/Units 02:01 02:27 02:29 WBC (4.8-10.8) X10*3/uL RBC (4.20-5.50) X10*6/uL Hgb (12.0-16.0) g/dl Hct (37.0-47.0) % MCV (80.0-98.0) fL MCH (27.0-33.0) pg MCHC (31.0-35.0) g/dl RDW (11.0-16.0) % Plt Count (160-400) X10*3/uL MPV (9.4-12.3) fL Immature Gran % (Auto) (0.0-0.4) % Neut % (Auto) (45-73) % Lymph % (Auto) (20-40) % [place] % (Auto) (2-11) % Eos % (Auto) (0-4) % Baso % (Auto) (0-2) % Lymph # (Auto) (1.2-4.9) X10*3/uL [place] # (Auto) (0.1-1.2) X10*3/uL Eos # (Auto) (0.0-0.4) X10*3/uL Baso # (Auto) (0.0-0.2) X10*3/uL Abs Immat Gran (auto) (0.00-0.03) X10*3/uL Absolute Neuts (auto) (2.0-8.3) x10*3/uL Absolute Nucleated RBC (0.0-0.012) X10*3/uL Nucleated RBC % (auto) (0.0-0.2) /100WBC Sodium 141 (135-145) mmol/L Potassium 2.9 L* (3.3-5.1) mmol/L Chloride 108 (96-108) mmol/L Carbon Dioxide 16 L (22-29) mmol/L Anion Gap 20 (12-20) BUN 12 (9-16) mg/dL Creatinine 0.65 (0.5-1.4) mg/dL Estim Creat Clear Calc 120.2 Estimated GFR > 60 POC Glucose 109 (60-115) mg/dL Random Glucose 107 (60-115) mg/dL Calcium 9.0 (8.4-10.2) mg/dL Total Bilirubin 0.1 (0.0-1.0) mg/dL Direct Bilirubin < 0.2 (0.0-0.5) mg/dL AST 21 (5-31) U/L ALT 11 (0-31) U/L Alkaline Phosphatase 79 (39-117) U/L Total Protein 9.2 H (6.5-8.0) g/dL Albumin 4.3 (3.5-5.0) g/dL Beta HCG, Quant < 2 mIU/mL Urine Opiates Screen Not Detected (Not Detect) Ur Buprenorphine Scrn Not Detected (Not Detect) ng/mL Ur Oxycodone Screen Not Detected (Not Detect) ng/mL Urine Methadone Screen Not Detected (Not Detect) ng/mL Urine Fentanyl Screen Not Detected (Not Detect) Ur Barbiturates Screen Not Detected (Not Detect) Ur Phencyclidine Scrn Not Detected (Not Detect) Ur Amphetamines Screen Not Detected (Not Detect) U Benzodiazepines Scrn Not Detected (Not Detect) Urine Cocaine Screen Not Detected (Not Detect) U Marijuana (THC) Screen Not Detected (Not Detect) Ethyl Alcohol 126 mg/dL 10/11/24 Range/Units 03:20 WBC 12.4 H (4.8-10.8) X10*3/uL RBC 4.22 (4.20-5.50) X10*6/uL Hgb 9.2 L (12.0-16.0) g/dl Hct 28.5 L (37.0-47.0) % MCV 67.5 L (80.0-98.0) fL MCH 21.8 L (27.0-33.0) pg MCHC 32.3 (31.0-35.0) g/dl RDW 14.7 (11.0-16.0) % Plt Count 555 H (160-400) X10*3/uL MPV 9.6 (9.4-12.3) fL Immature Gran % (Auto) 0.3 (0.0-0.4) % Neut % (Auto) 71.9 (45-73) % Lymph % (Auto) 20.2 (20-40) % [place] % (Auto) 6.0 (2-11) % Eos % (Auto) 1.4 (0-4) % Baso % (Auto) 0.2 (0-2) % Lymph # (Auto) 2.5 (1.2-4.9) X10*3/uL [place] # (Auto) 0.7 (0.1-1.2) X10*3/uL Eos # (Auto) 0.2 (0.0-0.4) X10*3/uL Baso # (Auto) 0.0 (0.0-0.2) X10*3/uL Abs Immat Gran (auto) 0.04 H (0.00-0.03) X10*3/uL Absolute Neuts (auto) 8.9 H (2.0-8.3) x10*3/uL Absolute Nucleated RBC 0.000 (0.0-0.012) X10*3/uL Nucleated RBC % (auto) 0.0 (0.0-0.2) /100WBC Sodium (135-145) mmol/L Potassium (3.3-5.1) mmol/L Chloride (96-108) mmol/L Carbon Dioxide (22-29) mmol/L Anion Gap (12-20) BUN (9-16) mg/dL Creatinine (0.5-1.4) mg/dL Estim Creat Clear Calc Estimated GFR POC Glucose (60-115) mg/dL Random Glucose (60-115) mg/dL Calcium (8.4-10.2) mg/dL Total Bilirubin (0.0-1.0) mg/dL Direct Bilirubin (0.0-0.5) mg/dL AST (5-31) U/L ALT (0-31) U/L Alkaline Phosphatase (39-117) U/L Total Protein (6.5-8.0) g/dL Albumin (3.5-5.0) g/dL Beta HCG, Quant mIU/mL Urine Opiates Screen (Not Detect) Ur Buprenorphine Scrn (Not Detect) ng/mL Ur Oxycodone Screen (Not Detect) ng/mL Urine Methadone Screen (Not Detect) ng/mL Urine Fentanyl Screen (Not Detect) Ur Barbiturates Screen (Not Detect) Ur Phencyclidine Scrn (Not Detect) Ur Amphetamines Screen (Not Detect) U Benzodiazepines Scrn (Not Detect) Urine Cocaine Screen (Not Detect) U Marijuana (THC) Screen (Not Detect) Ethyl Alcohol mg/dL Discharge Plan Discharge Clinical Impression: Alcohol intoxication, Panic attack Patient Disposition: Home, Self-Care Instructions: Abuse of Alcohol (ED), Anxiety (ED) Additional Instructions: Please follow-up with your primary care physician tomorrow. If you have any worsening or new symptoms, please return to the emergency room or call 911 Prescriptions: No Action metronidazole [Flagyl] 500 mg tablet 500 mg PO BID 7 Days Qty: 14 0RF miconazole nitrate [Monistat 7] 2 % cream 1 appful vaginal BEDTIME 7 Days Qty: 45 0RF ferrous sulfate 325 mg (65 mg iron) tablet,delayed release (DR/EC) 325 mg PO BID 30 Days Qty: 60 3RF docusate sodium [Colace] 100 mg capsule 100 mg PO BID PRN (Reason: constipation) 30 Days Qty: 60 3RF prednisone 50 mg tablet 50 mg PO DAILY 4 Days Qty: 4 0RF cefuroxime axetil 250 mg tablet 250 mg PO Q12H Qty: 10 0RF phenazopyridine [Pyridium] 200 mg tablet 200 mg PO TID Qty: 6 0RF One A Day Women's DHA 28 mg iron- 800 mcg combo pack 1 pkg PO DAILY Qty: 90 3RF loratadine [Allergy Relief (loratadine)] 10 mg tablet 10 mg PO DAILY PRN (Reason: allergy symptoms) Qty: 30 1RF famotidine [Pepcid] 20 mg tablet 20 mg PO BID Qty: 60 3RF Vitamin 27 mg iron- 800 mcg tablet 1 tab PO DAILY Qty: 30 5RF sertraline 50 mg tablet 50 mg PO DAILY Qty: 20 0RF Print Language: Swiss
[2024-10-11] MEDS: Potassium Chloride Packet 20 MEQ PACKET 60 MEQ PO (08:04)
--- NOTE | 2024-10-11 08:05 | PC.NURSE ---
pt sleeping, woke to verbal stimulus, awake overnight monitor nsr, vss, rr equal/non labored pt medicated with potassium per order, will dischage home
[2024-10-11 09:48] VITALS: BP 113/52; PULSE 81; RESP 18; TEMP 36.8; O2SAT 97
== END 2024-10-11 09:49 | disposition home or self-care (01) ==
PROVIDERS: Emergency Provider Emergency Medicine
DX: F10.920 Alcohol use, unspecified with intoxication, uncomplicated (principal); Y90.6 Blood alcohol level of 120-199 mg/100 ml; F41.0 Panic disorder [episodic paroxysmal anxiety]; F41.9 Anxiety disorder, unspecified; F12.90 Cannabis use, unspecified, uncomplicated; Z79.899 Other long term (current) drug therapy
CPT/HCPCS: 36415; 80048; 80076; 80307; 82947; 84702; 85025; 96374; 99284; J2060

== ENCOUNTER 2024-10-19 09:08 | Outpatient (REF) | payer MEDICAID, SELFPAY ==
--- OUTSIDE RECORDS SUMMARY | 2024-10-20 09:50 | XMS_ITS | Clinical Summary ---
Author Organization [facility] Address [address] [place] [address] Care Team Providers Care Merry Go Round Attendant Name Role Phone Unavailable Primary Care Provider Unavailabl e Encounters Date Type Department Care Team Description 09/24/2024 Telephone [facility] [address] [place] [phone] Chau Davidson MD New patient appt. 09/18/2024 Population Health Risk Score [facility] ([facility]) Department [address] [place] [address] [phone] Provider, Population Health Generic 09/01/2024 Orders Only [facility] External Provider, [facility] from Last 3 Months Social [...] Description 01/01/2025 10:00 AM EDT Office Visit [facility] [address] [place] [phone] Mary Newton MD [address] [place] [phone] Health Maintenance Due Date Last Done Comments [...] Laterality Modality Lower Extremities, Knee [facility] 09/01/2024 9:40 AM EST Narrative 09/01/2024 9:58 AM EST ? [facility] ?[address] ?[place] [address] ?XRay Report ? Signed ? Patient: Klein,Holley ?MR#: [id number] ?? [id number] ? : 1995 ?Acct:[id number] ? Age/Sex: 29 / F ?ADM Date: 02/25/25 ? Loc: HO.ED ? Attending Dr: ? Ordering Physician: Generic ED Physician ?? Date of Service: 09/01/24 ?? Procedure(s): XR knee LT 3V ?? Accession Number(s): [id number] ? cc: Generic ED Physician; Evon Hayes [...] 0955 ? DD/ ? TD/TT: 09/01/2451 ? Construction Project Coordinator: ? Procedure Note Corey Godinez - 09/01/2024 [place] [id number] XRay Report Signed Patient: Holley Klein#: [id number] : 1995Acct:[id number] Age/Sex: 29 / FADM Date: 09/01/24 Loc: HO.ED Attending Dr: Ordering Physician: Generic ED Physician Date of Service: 09/01/24 Procedure(s): XR knee LT 3V Accession Number(s): [id number] cc: Generic ED Physician; Evon Hayes DO [...] in OV> 09/01/24954 DD/ 9 TD/TT: 09/01/24950 Construction Project Coordinator: [facility] External Provider IMG XR PROCEDURES Final Result from Last 3 Months Insurance [facility] [id number]
== END 2024-10-19 09:09 | disposition home or self-care (01) ==
LOC: HO.HOSX 09:08
PROVIDERS: Visit Provider Physician Assistant
DX: Z13.89 Encounter for screening for other disorder (principal)

== ENCOUNTER 2024-12-07 08:32 | Outpatient (REF) | payer MEDICAID, SELFPAY | END 2024-12-07 08:33 | disposition home or self-care (01) | LOC: HO.HOSX 08:32 | PROVIDERS: Visit Provider Physician Assistant | DX: Z13.89 Encounter for screening for other disorder (principal) ==